=== PATIENT | male | born 1975 | race Caucasian/White ===

== ENCOUNTER 2017-05-31 17:56 | Emergency (ER) | payer MEDICAID ==
[~2017-05-31] VITALS: Ht 175.3 cm; Wt 88.9 kg
[~2017-05-31 17:56] MED LIST: FLEXERIL10 MG PO; MEDROL 4MG. DOSE4 MG PO; NAPROXEN SODIU500 MG PO; ZITHROMAX Z PA250 MG PO
[2017-05-31 20:00] VITALS: BP 134/73
--- NOTE | 2017-05-31 20:12 | Emergency Room Report ---
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 N Clinical Suspician of Infection? N Mental Status: 1 - Regular (Normal Baseline) Sepsis Risk:Low Sepsis Risk Have you (or family members/close friends) recently traveled outside the [place]? N If Yes, where/when: Have you had exposure to infectious disease within the past month? N TB? Other? 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 No Angina: No [place]: No Hypertension? No Hyperlipidemia? No CHF? No DVT? No PE? No COPD? No Asthma? No Anemia? No GERD? No Gastric ulcers? No GI Bleed? No Hernia? No Thyroid Problems? No Hypothyroidism? No CVA? No Seizures? No Diabetes? No Renal Insuffiency? No End Stage Renal Disease? No UTI? No Stones? No BPH? No GB Disease: No Nephritic Syndrome? No Asplenia? No Hepatitis? No Sickle Cell Disease? No Arthritis? No Migraines? No Cataracts? No Glaucoma? No MRSA? No HIV? No TB? No Anxiety? No Depression? No Cancer? No More? No Immunization Hx DT/Tetanus 1-4 Years Ago Surgical Hx Previous Surgery?N Social History Smoking Hx Smoker: Never Smoker Tobacco: No Alcohol Alcohol: No Drugs none Review of Systems All Other Systems Reviewed and Negative Constitutional denies fever Eyes denies drainage ENT throat pain. denies: epistaxis, throat swelling. Respiratory see HPI, cough Cardiovascular denies palpitations Gastrointestinal denies vomiting Skin denies rash Psychiatric/Neurological denies seizure Physical Exam Vital Signs Vital Signs Date Time Temp Pulse Resp B/P Pulse O2 O2 Flow FiO2 Ox Delivery Rate 05/31 1811 98.1 99 16 134/73 98 - WBC >12,000 or <4,000 or 10% bands? 2 or more SIRS Criteria Met? B/P:134/73 MAP:93 Creatinine >2.0? UA output<0.5ml/kg/hr for 2 hrs? Platelet count >100,000? Lactate >2.0mmol/1? INR >1.2 or PTT > than 60 sec? Evidence of Organ Dysfunction? Provider documented clinical suspician of infection? N Sepsis Criteria Count: 1 Sepsis Risk: Low Sepsis Risk General Appearance no apparent distress Eye Exam - bilateral eye PERRL, bilateral eye EOMI Ear, Nose, Throat refused exam Respiratory Status No: respiratory distress. 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 No Departure Departure Time of Disposition 2010 Disposition Against Medical Advice Clinical Impression Primary Impression: Acute bronchitis Qualifiers: Bronchitis organism: unspecified organism Qualified Code: J20.9 - Acute bronchitis, unspecified Condition STABLE Patient Instructions DI for Cough -- Adult Additional Instructions see pcp for follow up Discharge Counseling Counseled pt/family regarding diagnosis ED Critical Care Critical Care No at 2012
--- NOTE | 2017-05-31 20:12 | Emergency Room Report ---
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 N Clinical Suspician of Infection? N Mental Status: 1 - Regular (Normal Baseline) Sepsis Risk:Low Sepsis Risk Have you (or family members/close friends) recently traveled outside the [place]? N If Yes, where/when: Have you had exposure to infectious disease within the past month? N TB? Other? 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 No Angina: No [place]: No Hypertension? No Hyperlipidemia? No CHF? No DVT? No PE? No COPD? No Asthma? No Anemia? No GERD? No Gastric ulcers? No GI Bleed? No Hernia? No Thyroid Problems? No Hypothyroidism? No CVA? No Seizures? No Diabetes? No Renal Insuffiency? No End Stage Renal Disease? No UTI? No Stones? No BPH? No GB Disease: No Nephritic Syndrome? No Asplenia? No Hepatitis? No Sickle Cell Disease? No Arthritis? No Migraines? No Cataracts? No Glaucoma? No MRSA? No HIV? No TB? No Anxiety? No Depression? No Cancer? No More? No Immunization Hx DT/Tetanus 1-4 Years Ago Surgical Hx Previous Surgery?N Social History Smoking Hx Smoker: Never Smoker Tobacco: No Alcohol Alcohol: No Drugs none Review of Systems All Other Systems Reviewed and Negative Constitutional denies fever Eyes denies drainage ENT throat pain. denies: epistaxis, throat swelling. Respiratory see HPI, cough Cardiovascular denies palpitations Gastrointestinal denies vomiting Skin denies rash Psychiatric/Neurological denies seizure Physical Exam Vital Signs Vital Signs Date Time Temp Pulse Resp B/P Pulse O2 O2 Flow FiO2 Ox Delivery Rate 05/31 1811 98.1 99 16 134/73 98 - WBC >12,000 or <4,000 or 10% bands? 2 or more SIRS Criteria Met? B/P:134/73 MAP:93 Creatinine >2.0? UA output<0.5ml/kg/hr for 2 hrs? Platelet count >100,000? Lactate >2.0mmol/1? INR >1.2 or PTT > than 60 sec? Evidence of Organ Dysfunction? Provider documented clinical suspician of infection? N Sepsis Criteria Count: 1 Sepsis Risk: Low Sepsis Risk General Appearance no apparent distress Eye Exam - bilateral eye PERRL, bilateral eye EOMI Ear, Nose, Throat refused exam Respiratory Status No: respiratory distress. 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 No Departure Departure Time of Disposition 2010 Disposition Against Medical Advice Clinical Impression Primary Impression: Acute bronchitis Qualifiers: Bronchitis organism: unspecified organism Qualified Code: J20.9 - Acute bronchitis, unspecified Condition STABLE Patient Instructions DI for Cough -- Adult Additional Instructions see pcp for follow up Discharge Counseling Counseled pt/family regarding diagnosis ED Critical Care Critical Care No at 2012
--- OUTSIDE RECORDS SUMMARY | 2017-06-23 07:16 | External Medical Summary Rpt ---
Author Author , TRAVON COOL Address Unknown Phone [email or web address] Care Team Providers Care Golf Course Designer Name Role Phone DE LA CRUZ JERRY CARDENASNETT Unavailable Unavailable BRAIN BETTS Unavailable Unavailable [facility] Unavailable Unavailable [facility], [facility] GEORGE CAR, GEORGE Unavailable Unavailable CAR Natasha ZUÑIGA MD Unavailable Unavailable PSC, C ODALYS ZUÑIGA MD PSC ROLAND, CAROL S, Unavailable Unavailable ROLAND, CAROL S [facility], Unavailable Unavailable [facility] STANLEY SAMANTA, STANLEY SAMANTA Unavailable Unavailable STANLEY SAMANTA, STANLEY SAMANTA Unavailable Unavailable JOSEF SOPHY, Unavailable Unavailable JOSEF SOPHY EYAL II, EYAL II Unavailable Unavailable EYAL II THO, EYAL II Unavailable Unavailable [facility] Unavailable [facility]available [facility] RYAN JENNIFER, RYAN Unavailable Unavailable JENNIFER JONAS, JONAS Unavailable Unavailable AL NICOLE, AL Unavailable Unavailable NICOLE JOY NICOLE, JOY Unavailable Unavailable NICOLE BARRY RHO, BARRY Unavailable Unavailable RHO ECHAVARRIA, ECHAVARRIA Unavailable Unavailable [facility] Unavailable Unavailable INC, [facility] Unavailable Unavailable [facility]PITAL P, [facility], Unavailable Unavailable [facility], Unavailable Unavailable [facility] Unavailable Unavailable CENTER, [facility] RENO LESLIE, RENO LESLIE Unavailable Unavailable RENO LESLIE, RENO LESLIE Unavailable Unavailable IKRAMUDDIN, WILLIAM, Unavailable Unavailable IKRAMUDDIN, WILLIAM ROSSY WATTS ROSSY Unavailable Unavailable STEPHANIE LOPEZ S, Unavailable Unavailable LARIOSSTEPHANIE ORTIZ S JUSTICE TON, JUSTICE Unavailable Unavailable TON ABRAHAN III STEFANIE, Unavailable Unavailable ABRAHAN III STEFANIE [facility] Unavailable Unavailable [facility], [facility] KMS NURSE Unavailable Unavailable PRACTITIONER GR, KMSF NURSE PRACTITIONER GR TRACEY MAHAN, Unavailable Unavailable TRACEY MAHAN [facility] Un[facility] Unavailable [facility], [facility] KEYANNA LAURIE, KEYANNA LAURIE Unavailable Unavailable MIGUEL ANGEL, MIGUEL ANGEL Unavailable Unavailable MIGUEL ANGEL, MIGUEL ANGEL Unavailable Unavailable [facility] Unavailable [facility]available [facility] Un[facility], Unavailable Unavailable [facility] COATS ASHER, COATS ASHER Unavailable Unavailable COATS ASHER, COATS ASHER Unavailable Unavailable LILLIE BA, Unavailable Unavailable LILLIE BA [facility] Unavailable Unavailable [facility]ARM[facility]Y, [facility] SAMANTA STANLEY MD Unavailable Unavailable CON[facility]ING [facility], [facility] STANLEY MD [facility] Unavailable Unavailable EMS, [facility] Unavailable Unavailable EMS, [facility] CARMELLA JEA, CARMELLA Unavailable Unavailable JEA RICE YVO, RICE YVO Unavailable Unavailable SCALF MAU, SCALF MAU Unavailable Unavailable SCHULSTAD SALBADOR, Unavailable Unavailable [facility] SCIFRES ANG, SCIFRES Unavailable Unavailable ANG SCIFRES ANG, SCIFRES Unavailable Unavailable ANG SOKAN BAB, SOKAN BAB Unavailable Unavailable [facility]available Un[facility], [facility] KEANE, KEANE Unavailable Unavailable STEYN PIE, STEYN PIE Unavailable Unavailable STONE, STONE Unavailable Unavailable STONE YOUNG, STONE YOUNG Unavailable Unavailable SWINEY PAT, SWINEY Unavailable Unavailable PAT TAULBEE WILLIAM, TAULBEE Unavailable Unavailable WILLIAM MICHAEL III J, MICHAEL Unavailable Unavailable III J BLAKE JOHN, BLAKE Unavailable Unavailable JOHN BLAKE JOHN, BLAKE Unavailable Unavailable JOHN KELLIE TIA, KELLIE Unavailable Unavailable [facility] MEGHAN CAO, Unavailable Unavailable MEGHAN CAO Purpose Continuity of Care Document - 12-06-2007 through 2016 Problems Code Diagnosis DOS Provider Status Z0100 ENCOUNTER 04-10-2017 MIGUEL ANGEL EXAM EYES & VISION W/O ABNORMAL FIND R0789 OTHER CHEST 03-04-2017 [facility] P M54.5 Low back 02-03-2017 pain S33.5XXA Sprain of 02-03-2017 ligaments of lumbar spine, initial encounter W55.12XA Struck by 02-03-2017 horse, initial encounter Z72.0 Tobacco use 02-03-2017 E785 HYPERLIPIDE 02-02-2017 [facility] LAURA PHYSICIANS UNSPECIFIED GROUP 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-02-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 GROUP I10 ESSENTIAL 02-02-2017 [facility] PRIMARY PHYSICIANS HYPERTENSIO GROUP N J209 ACUTE 01-29-2017 [facility] UNSPECIFIED INC R21 RASH AND 01-29-2017 [facility] OTHER [facility] NONSPECIFIC INC SKIN ERUPTION Z720 TOBACCO USE 01-29-2017 [facility] F17.210 NICOTINE 01-28-2017 DEP[facility], CIGARETTES, UNCOMPLICAT ED I10 ESSENTIAL 01-28-2017 (PRIMARY) HYPERTENSIO N R07.9 CHEST PAIN, 01-28-2017 UNSPECIFIED Z79.899 OTHER LONG 01-28-2017 TER[facility] (CURRENT) DRUG THERAPY [id number] PAIN IN 01-28-2017 [place] LEFT LEG [facility] EMS R0602 SHORTNESS 01-25-2017 [facility] [place] [facility] BREATH [facility] R079 CHEST PAIN 01-25-2017 [facility] UNSPECIFIED N EMERGENCY PHYS J0140 ACUTE 09-27-2016 [facility] PANSINUSITI N EMERGENCY S PHYS UNSPECIFIED J324 CHRONIC 09-27-2016 [facility] PANSINUSITI N EMERGENCY S PHYS R51 HEADACHE 09-27-2016 [facility] L237 ALLERGIC 08-04-2016 [facility] CONTACT N EMERGENCY DERMATITIS PHYS D/T PLANTS EXCP FOOD M5440 LUMBAGO 08-03-2016 [facility] UNSPECIFIED SIDE M545 LOW BACK 08-03-2016 [facility] PAIN PHYSICIANS GROUP B0089 OTHER 05-13-2016 [facility] HERPESVIRAL N EMERGENCY INFECTION PHYS R0781 PLEURODYNIA 01-10-2016 [facility] N EMERGENCY PHYSI M542 CERVICALGIA 12-24-2015 [facility] C70843 MUSCLE 12-24-2015 [facility] BACK INC G10054 OTHER 12-24-2015 [facility] MUSCLE [facility] SPASM INC E38243Z UNSPECIFIED 09-23-2015 [facility] SPRAIN N EMERGENCY LEFT FOOT PHYS INITIAL ENCOUNTER L59898C UNSPECIFIED 09-23-2015 [facility] [place] [facility] LEFT FOOT INITIAL ENCOUNTER J0234BV OTHER 09-23-2015 [facility] CONTACT N EMERGENCY WITH OTHER PHYS MAMMALS INITIAL ENCNTR T97008 PREGLAUCOMA 08-05-2015 SCIFRES ANG , UNSPECIFIED , BILATERAL 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 H524 PRESBYOPIA 08-05-2015 [facility] [id number] PUNCT WND 07-16-2015 [facility] NO FB RT N EMERGENCY INDX FINGER PHYS NO DAMGE NAIL INT [id number] EXPOSURE TO 07-16-2015 [facility] OTHER N EMERGENCY SPECIFIED PHYS FACTORS INITIAL ENC 65975 DEHYDRATION 03-01-2015 [facility] N EMERGENCY PHYS 4779 ALLERGIC 03-01-2015 [facility] RHINITIS N EMERGENCY CAUSE PHYS UNSPECIFIED 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 V016 CONTACT 01-03-2015 [facility] WITH OR PHYSICIANS EXPOSURE TO GROUP VENEREAL DISEASES 2724 OTHER AND 11-28-2014 [facility] UNSPECIFIED PHYSICIANS GROUP HYPERLIPIDE LAURA 4019 UNSPECIFIED 11-28-2014 [facility] ESSENTIAL PHYSICIANS HYPERTENSIO GROUP N 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-28-2014 [facility] 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 4011 ESSENTIAL 01-12-2014 [facility] HYPERTENSIO N, BENIGN 97491 CHEST PAIN 08-04-2013 R[place] LESLIE UNSPECIFIED 33240 OTHER CHEST 08-04-2013 [facility] V1582 PERS HX 08-04-2013 [facility] USE [facility] V1749 FAMILY 08-04-2013 [facility] HISTORY OF [facility] OTHER HOSPITAL CARDIOVASCU LAR DISEASES V5869 LONG-TERM 08-04-2013 [facility] (CURRENT) COMMUNITY USE OF HOSPITAL OTHER MEDICATIONS 30660 CALCU 12-09-2012 [facility] NURSE XANDER PRACTITIONE W/O MENTION R GR CHOLECYST/O BST 73749 CALCU 12-08-2012 [facility] W/OTH HOSPI CHOLECYST W/O MENTION OBST 07792 CHRONIC 12-08-2012 [place] [facility] CHOLE[facility] IS [facility] V6441 LAPAROSCOPI 12-08-2012 [facility]ICAL SERV PROC [facility] COVERTED OPEN PROC 5758 OTHER 10-28-2012 [facility] [place] SPECIFIED RADIOLOGY DISORDER OF GALLBLADDER 5680 PERITONEAL 10-10-2012 C ODALYS ZUÑIGA MD PSC 76576 CALCU 10-10-2012 Natasha ZUÑIGA W/TEMO COHN PSC CHOLCYST W/O MENTION OBST V641 SURG/OTH 10-10-2012 C [facility] PROC NOT ZARA HERNANDEZ MD [facility] BECAUSE CONTRAINDIC ATION 2720 PURE 09-28-2012 [facility] HYPERCHOLES ZARA SANTA MD PSC 30526 ABDOMINAL 09-28-2012 [facility] PAIN RIGHT ZARA EWING MD [facility] QUADRANT 7873 FLATULENCE 09-21-2012 C [facility] ERUCTATION DOUG COHN [facility] PAIN 89562 ABDOMINAL 09-06-2012 JACKELINE PAIN, 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 RUST CONSULTING SERV 96980 HYPERSOMNIA 08-10-2011 [facility] UNSPECIFIED CONSULTING SERV 27456 SHORTNESS 08-10-2011 [facility] OF BREATH CONSULTING SERV 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 03152 OTHER 08-02-2011 [facility] RESPIRATORY ABNORMALITI ES V8532 BODY MASS 08-02-2011 [facility] INDEX COMMUNITY 32.0-32.9 HOSPITAL ADULT 10805 RECURRENT 07-28-2011 ST[facility] SAMANTA HYPERSOMNIA 04851 PRECORDIAL 07-28-2011 [facility] SAMANTA PAIN 7804 DIZZINESS 07-24-2011 BLA[facility] JOHN AND GIDDINESS 7840 HEADACHE 07-24-2011 [facility] V0481 NEED 06-24-2011 [facility] PROPHYLACTI HEALTHCARE C CENTER VACCINATION &INOCULATIO N FLU 31297 OTHER 06-05-2011 [facility] DISEASES OF HEALTHCARE NASAL CENTER CAVITY AND SINUSES 490 BRONCHITIS 06-05-2011 [facility] NOT HEALTHCARE SPECIFIED CENTER ACUTE OR CHRONIC 7862 COUGH 06-05-2011 [facility] 6929 CONTACT 01-15-2010 MIGUEL ANGEL DERMATITIS& EMERGENCY OTHER SERVICES [employer] UNSPEC CAUSE V154 PERS HX 12-12-2009 [facility] FOR PSYCHOLOGIC PUBLIC HLTH AL TRAUMA PRS [facility] 7241 PAIN IN 08-13-2009 IKRAMUDDIN, THORACIC WILLIAM SPINE 2469 UNSPECIFIED 06-05-2009 [facility] OF THYROID HOLDING 2729 UNSPECIFIED 06-05-2009 [facility] OF LIPOID HOLDING METABOLISM 2899 UNSPECIFIED 06-05-2009 [facility] DISEASES AMERIC BLOOD&BLOOD HOLDING -FORMING ORGANS 23531 ATHEROSLERO 06-05-2009 ALL FAMILY [facility] CARE EXTREM W/INTERMIT CLAUDICAT 06659 ATHEROSLERO 06-05-2009 ALL FAMILY [place] ART HEALTH CARE EXTREMITIES W/REST PAIN 7245 UNSPECIFIED 06-05-2009 ALL FAMILY BACKACHE HEALTH CARE 74106 ELEVATED 06-05-2009 [facility] PROSTATE [facility] SPECIFIC HOLDING ANTIGEN 32341 OPEN WOUND 09-21-2008 [facility] WITHOUT CLINIC MENTION COMPLICATIO N 8820 OPEN WOUND 09-19-2008 [facility] A HAND NO R H FINGER ALONE W/O MENTION COMP 9140 HAND NO 09-19-2008 [facility] [employer] [employer] BURN W/O INF E9060 DOG BITE 09-19-2008 [facility] 4659 ACUTE URIS 05-16-2008 IKRAMUDDIN, OF WILLIAM UNSPECIFIED SITE J20.9 ACUTE BRONCHITIS, UNSPECIFIED M54.2 CERVICALGIA M54.9 DORSALGIA, UNSPECIFIED Medications Na ND Rx Da Fi Fi Am Da Di Ph RX Ph St me C No te ll ll ou ys ag ar # ys at rm s nt no ma ic us Or Da si cy ia de te s n re d CY 69 08 09 90 30 00 HO Ac CL 09 -1 -1 .0 00 ME ti OB 70 5- 5- 00 06 TO ve EN 84 20 20 08 WN ZA 61 17 17 93 RI 5 45 PH IN AR E MA 10 CY MG OF TA CY BL NT ET HI AN A NA 65 08 09 60 30 00 HO Ac RI 16 -1 -1 .0 00 ME ti OX 20 5- 5- 00 06 TO ve EN 19 20 20 08 WN 05 17 17 93 50 0 44 PH 0 AR MG MA CY TA BL OF ET CY NT HI AN A LI 68 08 09 30 30 00 HO Ac SI 00 -1 -1 .0 00 ME ti NO 10 5- 5- 00 06 TO ve RI 27 20 20 08 WN IL 10 17 17 75 8 30 PH 40 AR MA MG CY TA OF BL ET CY NT HI AN A GE 42 08 09 60 30 00 HO Ac MF 80 -1 -1 .0 00 ME ti IB 60 5- 5- 00 06 TO ve RO 26 20 20 08 WN ZI 00 17 17 75 L 5 29 PH 60 AR 0 MA MG CY TA OF BL ET CY NT HI AN A GA 68 08 09 60 30 00 HO Ac BA 00 -1 -1 .0 00 ME ti PE 10 5- 5- 00 06 TO ve NT 00 20 20 08 WN IN 70 17 17 75 3 26 PH 80 AR 0 MA MG CY TA OF BL ET CY NT HI AN A CY 69 07 08 90 30 00 HO Ac CL 09 -1 -1 .0 00 ME ti OB 70 8- 8- 00 06 TO ve EN 84 20 20 08 WN ZA 61 17 17 93 RI 5 45 PH IN AR E MA 10 CY MG OF TA CY BL NT ET HI AN A NA 68 07 08 60 30 00 HO Ac RI 46 -1 -1 .0 00 ME ti OX 20 8- 8- 00 06 TO ve EN 19 20 20 08 WN 00 17 17 93 50 5 44 PH 0 AR MG MA CY TA BL OF ET CY NT HI AN A LI 68 07 08 30 30 00 HO Ac SI 00 -1 -1 .0 00 ME ti NO 10 8- 8- 00 06 TO ve RI 27 20 20 08 WN IL 10 17 17 75 8 30 PH 40 AR MA MG CY TA OF BL ET CY NT HI AN A GE 69 07 08 60 30 00 HO Ac MF 09 -1 -1 .0 00 ME ti IB 70 8- 8- 00 06 TO ve RO 82 20 20 08 WN ZI 11 17 17 75 L 2 29 PH 60 AR 0 MA MG CY TA OF BL ET CY NT HI AN A GA 68 07 08 60 30 00 HO Ac BA 00 -1 -1 .0 00 ME ti PE 10 8- 8- 00 06 TO ve NT 00 20 20 08 WN IN 70 17 17 75 3 26 PH 80 AR 0 MA MG CY TA OF BL ET CY NT HI AN A LI 68 06 07 30 30 00 HO Ac SI 00 -2 -2 .0 00 ME ti NO 10 0- 1- 00 06 TO ve RI 27 20 20 08 WN IL 10 17 17 75 8 30 PH 40 AR MA MG CY TA OF BL ET CY NT HI AN A CY 69 06 07 90 30 00 HO Ac CL 09 -2 -2 .0 00 ME ti OB 70 0- 1- 00 06 TO ve EN 84 20 20 08 WN ZA 61 17 17 93 RI 5 45 PH IN AR E MA 10 CY MG OF TA CY BL NT ET HI AN A NA 68 06 07 60 30 00 HO Ac RI 46 -2 -2 .0 00 ME ti OX 20 0- 1- 00 06 TO ve EN 19 20 20 08 WN 00 17 17 93 50 5 44 PH 0 AR MG MA CY TA BL OF ET CY NT HI AN A GA 68 06 07 60 30 00 HO Ac BA 00 -2 -2 .0 00 ME ti PE 10 0- 1- 00 06 TO ve NT 00 20 20 08 WN IN 70 17 17 75 3 26 PH 80 AR 0 MA MG CY TA OF BL ET CY NT HI AN A GE 69 06 07 60 30 00 HO Ac MF 09 -2 -2 .0 00 ME ti IB 70 0- 1- 00 06 TO ve RO 82 20 20 08 WN ZI 11 17 17 75 L 2 29 PH 60 AR 0 MA MG CY TA OF BL ET CY NT HI AN A GA 68 05 06 60 30 00 HO Ac BA 00 -2 -2 .0 00 ME ti PE 10 3- 3- 00 06 TO ve NT 00 20 20 08 WN IN 70 17 17 75 3 26 PH 80 AR 0 MA MG CY TA OF BL ET CY NT HI AN A NA 68 05 06 60 30 00 HO Ac RI 46 -2 -2 .0 00 ME ti OX 20 3- 3- 00 06 TO ve EN 19 20 20 08 WN 00 17 17 75 50 5 27 PH 0 AR MG MA CY TA BL OF ET CY NT HI AN A CY 69 05 06 90 30 00 HO Ac CL 09 -2 -2 .0 00 ME ti OB 70 3- 3- 00 06 TO ve EN 84 20 20 08 WN ZA 61 17 17 75 RI 5 28 PH IN AR E MA 10 CY MG OF TA CY BL NT ET HI AN A GE 69 05 06 60 30 00 HO Ac MF 09 -2 -2 .0 00 ME ti IB 70 3- 3- 00 06 TO ve RO 82 20 20 08 WN ZI 11 17 17 75 L 2 29 PH 60 AR 0 MA MG CY TA OF BL ET CY NT HI AN A LI 68 05 06 30 30 00 HO Ac SI 00 -2 -2 .0 00 ME ti NO 10 3- 3- 00 06 TO ve RI 27 20 20 08 WN IL 10 17 17 75 8 30 PH 40 AR MA MG CY TA OF BL ET CY NT HI AN A ME 59 05 06 21 5 00 WA Ac TH 74 -1 -2 .0 00 L- ti YL 60 9- 3- 00 07 MA ve RI 00 20 20 41 RT ED 10 17 17 00 NI 3 36 PH SO AR LO MA NE CY 4 #4 MG 93 DO SE PK AZ 59 05 06 6. 5 00 WA Ac IT 76 -1 -2 00 00 L- ti HR 23 9- 3- 0 07 MA ve OM 06 20 20 41 RT YC 00 17 17 00 IN 1 37 PH AR 25 MA 0 CY MG #4 TA 93 BL ET GA 45 04 05 60 30 00 HO Ac BA 96 -1 -1 .0 00 ME ti PE 30 8- 9- 00 06 TO ve NT 55 20 20 07 WN IN 65 17 17 59 0 13 PH 30 AR 0 MA MG CY CA OF PS UL CY E NT HI AN A LI 68 04 05 30 30 00 HO Ac SI 00 -1 -1 .0 00 ME ti NO 10 8- 9- 00 06 TO ve RI 27 20 20 07 WN IL 10 17 17 59 8 12 PH 40 AR MA MG CY TA OF BL ET CY NT HI AN A LI 68 03 04 30 30 00 HO Ac SI 00 -2 -2 .0 00 ME ti NO 10 1- - 06 TO ve RI 27 20 20 07 WN IL 10 17 17 59 8 12 PH 40 AR MA MG CY TA OF BL ET CY NT HI AN A GA 45 03 04 60 30 00 HO Ac BA 96 -2 -2 .0 00 ME ti PE 30 1- 1- 00 06 TO ve NT 55 20 20 07 WN IN 65 17 17 59 0 13 PH 30 AR 0 MA MG CY CA OF PS UL CY E NT HI AN A LI 00 02 03 30 30 00 HO Ac SI 18 -2 -2 .0 00 ME ti NO 50 1- 4- 00 06 TO ve RI 64 20 20 07 WN IL 01 17 17 59 0 12 PH 40 AR MA MG CY TA OF BL ET CY NT HI AN A GA 45 02 03 60 30 00 HO Ac BA 96 -2 -2 .0 00 ME ti PE 30 1- 4- 00 06 TO ve NT 55 20 20 07 WN IN 65 17 17 59 0 13 PH 30 AR 0 MA MG CY CA OF PS UL CY E NT HI AN A GA 45 01 02 60 30 00 HO Ac BA 96 -2 -2 .0 00 ME ti PE 30 3- 4- 00 06 TO ve NT 55 20 20 07 WN IN 65 17 17 59 0 13 PH 30 AR 0 MA MG CY CA OF PS UL CY E NT HI AN A LI 00 01 02 30 30 00 HO Ac SI 18 -2 -2 .0 00 ME ti NO 50 3- 4- 00 06 TO ve RI 64 20 20 07 WN IL 01 17 17 59 0 12 PH 40 AR MA MG CY TA OF BL ET CY NT HI AN A ME 00 01 02 20 5 00 HO Ac TO 09 -1 -1 .0 00 ME ti CL 32 6- 7- 00 06 TO ve OP 20 20 20 07 WN RA 30 17 17 95 RI 5 76 PH DE AR MA 10 CY MG OF TA CY BL NT ET HI AN A CE 68 01 02 40 10 00 HO Ac PH 18 -1 -1 .0 00 ME ti AL 00 6- 7- 00 06 TO ve EX 12 20 20 07 WN IN 20 17 17 95 2 77 PH 50 AR 0 MA MG CY CA OF PS UL CY E NT HI AN A WHITE 53 01 02 20 10 00 HO Ac LF 74 -1 -1 .0 00 ME ti AM 60 6- 7- 00 06 TO ve ET 27 20 20 07 WN HO 20 17 17 95 XA 5 75 PH ZO AR LE MA -T CY MP OF DS CY TA NT BL HI ET AN A LI 00 12 01 30 30 00 HO Ac SI 18 -2 -2 .0 00 ME ti NO 50 6- 7- 00 06 TO ve RI 64 20 20 07 WN IL 01 16 17 27 0 51 PH 40 AR MA MG CY TA OF BL ET CY NT HI AN A GA 45 12 01 60 30 00 HO Ac BA 96 -2 -2 .0 00 ME ti PE 30 7- 7- 00 06 TO ve NT 55 20 20 07 WN IN 65 16 17 82 0 83 PH 30 AR 0 MA MG CY CA OF PS UL CY E NT HI AN A RI 37 09 10 3 30 30 HO 60 TR Ac IL 00 -2 -2 .0 ME 23 IM ti OS 00 8- 6- 00 TO 95 BL ve EC 45 20 20 WN 2 E 50 11 11 ER OT 4 PH IC C AR A 20 MA B .6 CY MG TA BL ET TI 00 09 10 1 90 22 HO 60 TR Ac ZA 18 -2 -1 .0 ME 23 IM ti NI 54 3- 3- 00 TO 71 BL ve DI 40 20 20 WN 2 E NE 01 11 11 ER 0 PH IC HC AR A L MA B 4 CY MG TA BL ET GE 31 10 10 3 60 30 HO 60 TR Ac MF 72 -1 -1 .0 ME 24 IM ti IB 20 2- 2- 00 TO 71 BL ve RO 22 20 20 WN 8 E ZI 50 11 11 ER L 5 PH IC 60 AR A 0 MA B MG CY TA BL ET LI 00 10 10 1 30 30 HO 60 TR Ac SI 18 -1 -1 .0 ME 24 IM ti NO 50 2- 2- 00 TO 71 BL ve RI 10 20 20 WN 9 E IL 21 11 11 ER 0 PH IC 20 AR A MA B MG CY TA BL ET RI 37 09 09 3 30 30 HO 60 TR Ac IL 00 -2 -2 .0 ME 23 IM ti OS 00 8- 8- 00 TO 95 BL ve EC 45 20 20 WN 2 E 50 11 11 ER OT 4 PH IC C AR A 20 MA B .6 CY MG TA BL ET TI 00 09 09 1 90 22 HO 60 TR Ac ZA 18 -2 -2 .0 ME 23 IM ti NI 54 3- 3- 00 TO 71 BL ve DI 40 20 20 WN 2 E NE 01 11 11 ER 0 PH IC HC AR A L MA B 4 CY MG TA BL ET LI 00 09 09 1 30 30 HO 60 TR Ac SI 18 -2 -2 .0 ME 23 IM ti NO 50 3- 3- 00 TO 71 BL ve RI 10 20 20 WN 3 E IL 11 11 11 ER 0 PH IC 10 AR A MA B MG CY TA BL ET AM 66 09 09 0 20 10 HO 60 TR Ac OX 68 -2 -2 .0 ME 23 IM ti -C 51 3- 3- 00 TO 71 BL ve LA 00 20 20 WN 4 E V 10 11 11 ER 87 0 PH IC 5- AR A 12 MA B 5 CY MG TA BL ET BR 60 09 09 0 12 3 HO 60 TR Ac OM 43 -2 -2 0. ME 23 IM ti FE 20 3- 3- 00 TO 71 BL ve D 83 20 20 0 WN 5 E DM 71 11 11 ER 6 PH IC CO AR A UG MA B H CY SY RU P 50 11 01 00 30 30 NE 16 IK Ac 11 -0 -1 .0 IG 53 RA ti 10 2- 4- 00 HB 48 MU ve 30 20 20 OR DD 90 09 10 HO IN 1 OD SY PH ED AR MA CY KE 00 11 01 00 60 30 NE 16 IK Ac TO 37 -0 -1 .0 IG 53 RA ti RI 85 2- 4- 00 HB 45 MU ve OF 75 20 20 OR DD EN 00 09 10 HO IN 1 OD 75 SY PH ED MG AR MA CA CY PS UL E TI 57 11 01 00 60 20 NE 16 IK Ac ZA 66 -0 -1 .0 IG 53 RA ti NI 40 2- 4- 00 HB 46 MU ve DI 50 20 20 OR DD NE 31 09 10 HO IN 3 OD HC SY L PH ED 4 AR MG MA CY TA BL ET 64 12 12 00 14 7 ME 75 IK Ac 37 -0 -1 .0 DZ 18 RA ti 60 1 7- 00 ON 38 MU ve 54 20 20 E DD 40 09 09 PH IN 1 AR MA SY CY ED 00 06 11 00 15 3 ME 68 LE Ac 59 -0 -0 .0 DZ 93 SL ti 10 5 ON 84 IE ve 38 20 20 E 50 09 09 PH RO 5 AR BE MA RT CY K ME 68 09 10 00 30 15 ME 72 No Ac LO 38 -2 -0 .0 DZ 65 t ti XI 20 ON 31 Av ve CA 05 20 20 E ai M 10 09 09 PH la 15 5 AR bl MA e MG CY TA BL ET 00 06 06 00 15 3 ME 58 LE Ac 59 -0 -1 .0 DZ 14 SL ti 10 ON 25 IE ve 38 20 20 E 50 08 09 PH RO 5 AR BE MA RT CY K PE 00 06 06 00 28 7 ME 68 LE Ac NI 78 -0 -1 .0 DZ 93 SL ti CI 11 ON 85 IE ve LL 65 20 20 E IN 51 09 09 PH RO 0 AR BE VK MA RT CY K 50 0 MG TA BL ET 00 05 05 00 15 3 ME 68 LE Ac 59 -1 -2 .0 DZ 07 SL ti 10 ON 23 IE ve 38 20 20 E 50 09 09 PH RO 5 AR BE MA RT CY K 00 05 05 00 15 3 ME 57 LE Ac 59 -0 -2 .0 DZ 46 SL ti 10 ON 13 IE ve 38 20 20 E 50 08 09 PH RO 5 AR BE MA RT CY K PE 00 05 05 00 28 7 ME 68 LE Ac NI 78 -0 -2 .0 DZ 00 SL ti CI 11 ON 70 IE ve LL 65 20 20 E IN 51 09 09 PH RO 0 AR BE VK MA RT CY K 50 0 MG TA BL ET 00 05 05 00 15 3 ME 68 LE Ac 59 -0 -2 .0 DZ 00 SL ti 10 8- 00 ON 69 IE ve 38 20 20 E 50 09 09 PH RO 5 AR BE MA RT CY K 00 03 04 00 15 3 ME 66 LE Ac 59 -2 -0 .0 DZ 50 SL ti 10 3- 9 00 ON 97 IE ve 38 20 20 E 50 09 09 PH RO 5 AR BE MA RT CY K 00 03 04 00 15 3 ME 66 LE Ac 59 -3 -0 .0 DZ 72 SL ti 10 0- 9 ON 29 IE ve 38 20 20 E 50 09 09 PH RO 5 AR BE MA RT CY K 00 01 02 00 15 3 ME 64 LE Ac 59 -2 -1 .0 DZ 83 SL ti 10 9 2 ON 77 IE ve 38 20 20 E 50 09 09 PH RO 5 AR BE MA RT CY K 00 01 02 00 15 3 ME 64 LE Ac 59 -2 -1 .0 DZ 77 SL ti 10 6- 2 ON 46 IE ve 38 20 20 E 50 09 09 PH RO 5 AR BE MA RT CY K LO 00 01 01 00 30 30 MC 10 CA Ac RA 59 -0 -1 .0 DO 79 LD ti ZE 10 9 5 WE 84 WE ve PA 24 20 20 LL 6 LL M 11 09 09 1 0 RI ES MG OF LY S TA PH BL AR ET M CE 68 01 01 00 15 5 MC 10 WA Ac PH 18 -0 -1 .0 DO 78 DN ti AL 00 7- 5 WE 50 ER ve EX 12 20 20 LL 1 KA IN 20 09 09 R 2 RI RA 50 OF HU 0 L MG PH AR CA M PS UL E 00 12 01 00 15 3 ME 63 LE Ac 59 -3 -1 .0 DZ 94 SL ti 10 0- 5- 00 ON 08 IE ve 38 20 20 E 50 08 09 PH RO 5 AR BE MA RT CY K 00 11 12 00 12 2 MC 10 TA Ac 59 -1 -0 .0 DO 63 CK ti 10 7 4- 00 WE 06 ET ve 50 20 20 LL 5 T 20 08 08 DE 5 RI NV OF ER D PH AR M 00 09 10 00 15 3 ME 60 No Ac 59 -1 -0 .0 DZ 85 t ti 10 5- 9- 00 ON 96 Av ve 38 20 20 E ai 50 08 08 PH la 5 AR bl MA e CY 00 09 09 00 15 3 ME 60 No Ac 59 -1 -2 .0 DZ 76 t ti 10 1- 6- 00 ON 55 Av ve 38 20 20 E ai 50 08 08 PH la 5 AR bl MA e CY PE 00 08 09 00 59 7 ME 60 No Ac RM 47 -3 -1 .0 DZ 44 t ti ET 25 0- 1- 00 ON 41 Av ve HR 24 20 20 E ai IN 26 08 08 PH la 7 AR bl 1% MA e CY LO TI ON 49 09 09 00 60 20 ME 60 No Ac 88 -0 -1 .0 DZ 51 t ti 40 3- 1- 00 ON 08 Av ve 77 20 20 E ai 90 08 08 PH la 5 AR bl MA e CY LO 51 09 09 00 10 10 ME 60 No Ac RA 66 -0 -1 .0 DZ 51 t ti TA 00 3- 1- 00 ON 07 Av ve DI 52 20 20 E ai NE 60 08 08 PH la 1 AR bl 10 MA e CY MG TA BL ET AZ 59 09 09 00 6. 5 ME 60 No Ac IT 76 -0 -1 00 DZ 51 t ti HR 23 3- 1- 0 ON 06 Av ve OM 06 20 20 E ai YC 00 08 08 PH la IN 1 AR bl MA e 25 CY 0 MG TA BL ET 00 08 08 00 12 2 MC 10 No Ac 59 -0 -1 .0 DO 29 t ti 10 5- 4- 00 WE 94 Av ve 50 20 20 LL 4 ai 20 08 08 la 5 RI bl OF e PH AR M PE 00 06 06 00 28 7 ME 58 No Ac NI 78 -0 -1 .0 DZ 14 t ti CI 11 5- 2- 00 ON 26 Av ve LL 65 20 20 E ai IN 51 08 08 PH la 0 AR bl VK MA e CY 50 0 MG TA BL ET PE 00 03 04 00 28 7 ME 56 No Ac NI 78 -1 -1 .0 DZ 07 t ti CI 11 4- 7- 00 ON 69 Av ve LL 65 20 20 E ai IN 51 08 08 PH la 0 AR bl VK MA e CY 50 0 MG TA BL ET 00 03 04 00 15 3 ME 56 No Ac 59 -1 -1 .0 DZ 07 t ti 10 4- 0- 00 ON 71 Av ve 38 20 20 E ai 50 08 08 PH la 5 AR bl MA e CY 00 03 04 00 15 3 ME 56 No Ac 59 -2 -1 .0 DZ 42 t ti 10 8- 0- 00 ON 34 Av ve 38 20 20 E ai 50 08 08 PH la 5 AR bl MA e CY 00 01 03 00 15 3 ME 54 No Ac 59 -1 -2 .0 DZ 53 t ti 10 5- 5- 00 ON 12 Av ve 38 20 20 E ai 50 08 08 PH la 5 AR bl MA e CY PE 00 01 03 00 28 7 ME 54 No Ac NI 78 -1 -2 .0 DZ 54 t ti CI 11 5- 5- 00 ON 86 Av ve LL 65 20 20 E ai IN 51 08 08 PH la 0 AR bl VK MA e CY 50 0 MG TA BL ET 00 01 03 00 15 3 ME 54 No Ac 59 -1 -2 .0 DZ 63 t ti 10 8- 5- 00 ON 36 Av ve 38 20 20 E ai 50 08 08 PH la 5 AR bl MA e CY Immunization Name Date Rout CVX Reac Dose Comm Prov Is Faci e tion ent ider Refu lity Give sed n IIV3 10- 141 TRIM No HORI 2-20 BLE ZON VACC 11 [facility] INE THCA SPLI RE T CENT VIRU ER S 0.5 ML DOSA GE IM USE Results Labs Lab Lab Date Result Refere Interp Status Commen Order Detail nces retati t Range on Drugs identified in Urine by Screen method (06-09-2017 15:20) Ampheta NEGATIV <1000 complet mine 017 E ed [Presen 15:20 ce] in Urine by Screen method 11-Hydr NEGATIV <50 complet oxy 017 E ed delta-9 15:20 tetrahy drocann abinol [Presen ce] in Unspeci fied specime n Procedures Procedure DOS Code Location Performer Comment DETERMINA 22203 [facility] TION 7 [facility]26 [facility] 7 XM&EVAL COMPRE NEW PT 1/> VST CV STRS 72521 SORAIDA DE LA PAZ TST 7 [facility] RX CONT P ECG I&R ONLY CV STRS 83319 SORAIDA DE LA PAZ TST 7 [facility] RX CONT P ECG W/O I&R CV STRS 25062 SORAIDA QUIGLEY TST 7 [facility] XERS&/OR INC INC RX CONT ECG TRCG ONLY ECHO 10173 SORAIDA QUIGLEY TTHRC R-T 7 [facility] HOSP 2D INC INC W/WOM-MOD E COMPL SPEC&COLR D THERAPEUT 03264 SORAIDA QUIGLEY IC 7 [facility] HOSP PROPHYLAC INC INC TIC/DX INJECTION SUBQ/IM AMB A0427 [facility] SERVICE 7 [facility] EMERGENCY EMS EMS TRANSPORT LEVEL 1 GROUND A0425 [facility] MILEAGE 7 [facility] STATUTE EMS EMS MILE RADIOLOGI 10421 [facility] [place] ECHAVARRIA C 7 RADIOLOGY EXAMINATI [place] [address] [facility] [place] KEANE HEAD/BRAI 7 RADIOLOGY N W/[place] [address] [facility] [place] KEANE MAXILLOFA 7 RADIOLOGY CIAL W/O CONTRAST MATERIAL RADEX 59575 [place] [facility] SPINE 6 MEDICAL SOPHY LUMBOSACR IMAGING AL ASS MINIMUM 4 VIEWS RADEX 29161 [facility] [place] GEORGE RIBS UNI 6 RADIOLOGY CAR W/POSTERO ANT CH MINIMUM 3 VIEWS RADEX 23167 SORAIDA QUIGLEY SPINE 6 [facility] LUMBOSACR INC INC AL MINIMUM 4 VIEWS RADEX 39860 SORAIDA QUIGLEY SPINE 6 [facility] CERVICAL INC INC 4 OR 5 VIEWS UNCLASSIF J3490 SORAIDA QUIGLEY IED DRUGS 6 [facility] INC INC RADEX 54247 [facility] [place] BARRY FOOT 6 RADIOLOGY RHO COMPLETE MINIMUM 3 VIEWS OPHTH 89872 SCIFRES SCIFRES MEDICAL 5 ANG ANG XM&EVAL COMPRE NEW PT 1/> VST ECG 33893 [facility] ROUTINE 3 [facility] W/LEAST 12 LDS TRCG ONLY W/O I&R BASIC 38603 [facility] METABOLIC 3 [facility] [place] [address] [facility] TROPONIN 3 [facility] KEITH BLOOD 82517 [facility] COUNT 3 [facility] AUTO&[place] [address] KENDRA GARDNER LIPASE 3 [facility] ECG 78862 SHADIA NELSON ROUTINE 3 ECG W/LEAST 12 LDS I&R ONLY RADIOLOGI 26959 KENDRA GARDNER C 3 [facility] ON CHEST SINGLE VIEW FRONTAL COLLECTIO 84345 KENDRA GARDNER N VENOUS 3 [facility] 36520 KMSF RICE YVO DISCHARGE 3 NURSE DAY PRACTITIO MANAGEMEN NER GR T 30 MIN/< LEVEL III 82693 [facility] LAURIE SURG 3 Y OF PATHOLOGY [facility] GROSS&NICOLE ROSCOPIC EXAM CHOLECYST 27480 [place] KELLIE ECTOMY 3 MEDICAL TIA SERV FOUNDATIO ANES 91822 [place] STEYN PIE INTRAPERI 3 MEDICAL TONEAL SERV UPPER FOUNDATIO ABDOMEN W/LAPS NOS MRI 72537 [facility] [place] ABRAHAN ABDOMEN 3 RADIOLOGY III STEFANIE W/O CONTRAST MATERIAL ANES 14093 [place] JOY INTRAPERI 3 ANESTHESI NICOLE TONEAL A GROUP UPPER PS ABDOMEN W/LAPS NOS LAPAROSCO 97434 C ODALYS C ODALYS PY SURG 3 BUBBAAD ZARA CHOLECYST PSC MD PSC ECTOMY ECG [address] [facility] ROUTINE 3 CHARLIE III J ECG CARDIOLOG W/LEAST Y CLINIC 12 LDS I&[place] [address] KENDRA GARDNER ABDOMINAL 3 [facility] TIME W/IMAGE LIMITED AMB A0427 [facility] SERVICE 2 KENDRA GARDNER [facility] EMERGENCY EMS [place] [address] [facility] [place] KOSTELIC ABDOMEN & 2 RADIOLOGY NEGRITO PELVIS W/O CONTRAST MATERIAL RADIOLOGI 34059 [facility] [place] SCALF MAU C EXAM 2 RADIOLOGY CHEST 2 VIEWS FRONTAL&L ATERAL GROUND A0425 [facility] MILEAGE 2 KENDRA GARDNER [facility] STATUTE EMS EMS MILE [facility] [address] LAB DORIAN LAB DORIAN SIVE 2 [facility] [employer] [place] [address] LAB D[facility]IAN LAB DORIAN FREE 2 [employer] [place] [address] LAB D[facility]IAN LAB DOR[facility] THYROID 2 [facility] STIMULATI HOLDING HOLDING NG HORMONE TSH HEMOGLOBI 51300 [facility] LAB DORIAN N 2 AMERIC AMERIC GLYCOSYLA HOLDING [place] [address] LAB D[facility]IAN LAB DORIAN TRIIODOTH 2 AMERIC AMERIC YRONINE HOLDING [place]ING T3 [place] [place] [address] LAB D[facility]IAN LAB DORIAN THYROID 2 [facility] STIMULATI HOLDING HOLDING NG HORMONE TSH LIPID 16628 [facility] LAB DORIAN PANEL 2 [employer] [facility] COMPREHEN 41626 [facility] LAB DORIAN SIVE 2 [facility] METABOLIC [facility]ING HOLDING PANEL POLYSOM 68872 STANLEY SAMANTA STANLEY SAMANTA 6/>YRS 1 SLEEP 4/> ADDL ADOLFO ATTND POLYSOM 33018 [place] 6/>YRS 1 [facility] SLE[facility] 4/> [facility] ADDL ADOLFO ATTND DUP-SCAN 26528 STANLEY SAMANTA STANLEY SAMANTA ARTL EDMOND 1 ABDL/PEL/ SCROT&/RP R ORGN COM CATECHOLA 27931 [facility] [place] MINES 1 [facility] ALEXIS ECHO 74789 STANLEY SAMANTA STANLEY SAMANTA TTHRC R-T 1 2D W/WOM-MOD E COMPL SPEC&COLR D METANEPHR 32996 [place] AAKASH 1 [facility] METANEPHR 77881 [place] AAKASH 1 [place] [address] [place] B[place] THYROID 1 [facility] NG HORMONE TSH COLLECTIO 50248 [place] N VENOUS 1 [facility] VENIPUNCT URE CREATINE 68823 [facility] KINASE 1 [facility] BLOOD 81205 MARGARITAON BUDDYURBON COUNT [address] [facility] AUTO&AUTO DIFRNTL WBC CRITICAL 90685 MIGUEL ANGEL CRUZ CARE 1 EMERGENCY ILL/INJUR SERVICES ED PATIENT INIT 30-[place] [address] KENDRA GARDNER TROPONIN 1 [facility] KEITH BASIC 52145 KENDRA GARDNER METABOLIC 1 [facility] [place] [address] KENDRA GARDNER HEAD/BRAI 1 [facility] W/O HOSPITAL HOSPITAL CONTRAST MATERIAL ECG 74060 MIGUEL ANGEL CRUZ ROUTINE 1 EMERGENCY ECG SERVICES W/LEAST 12 LDS I&R ONLY CREATINE 67003 KENDRA GARDNER KINASE MB 1 [facility] ONLY COLLECTIO 66133 [facility] N VENOUS 1 [facility] VENIPUNCT URE URNLS DIP 27134 [facility] 1 [facility] HOSPITAL LET REAGENT AUTO MICROSCOP Y THERAPEUT 25309 [address] [facility]ARD[address] IC [address] [facility] IV PUSH EACH NEW DRUG ECG 13943 KENDRA GARDNER ROUTINE 1 [facility] W/LEAST 12 LDS TRCG ONLY W/O I&R THER 04668 KENDRA GARDNER PROPH/DX 1 [facility] PUSH SINGLE/1S T SBST/DRUG CRITICAL 43638 ROSSY BLAIR CARE 1 STEFANIE STEFANIE ILL/INJUR ED PATIENT INIT 30-74 MIN ECG 99478 ROSSY BLAIR ROUTINE 1 [facility] STEFANIE ECG W/LEAST 12 LDS I&R ONLY IIV3 86541 HORIZON BLAKE VACCINE 1 [facility] VIRUS 0.5 ML DOSAGE IM USE LIPID 68909 LAB DORIAN LAB DORIAN PANEL 1 [employer] [facility]ING BLOOD 27833 LAB [facility] LAB DORIAN COUNT 1 [employer] COMPLETE HOLDING HOLDING AUTO&AUTO DIFRNTL WBC COMPREHEN 00876 LAB [facility] LAB DORIAN SIVE 1 [employer] METABOLIC HOLDING HOLDING PANEL NONINVASI 37536 H[facility]IZON BLAKE VE 1 [facility] OXIMETRY SINGLE DETER THERAPEUT 61791 [facility] IC 0 [facility] TIC/DX INJECTION SUBQ/IM APPL 56288 ALL CROTON, MODALITY 9 FAMILY STEPHANIE S 1/> [facility] IONTOPHOR ESIS EA 15 MIN ECG 16256 ALL CROTON, ROUTINE 9 FAMILY STEPHANIE S ECG HEALTH W/LEAST CARE 12 LDS W/I&R NON-INVAS 89870 ALL CROTON, 9 FAMILY BROWN S PHYSIOLOG HEALTH IC STD CARE EXTREMITY ART 2 LEVEL APPL 99202 ALL CROTON, MODALITY 9 FAMILY STEPHANIE S 1/> AREAS HEALTH ELEC CARE STIMJ UNATTENDE D BRNCDILAT 59506 ALL CROTON, RSPSE 9 FAMILY STEPHANIE S SPMTRY HEALTH PRE&POST- CARE BRNCDILAT ADMN VISUAL 03240 ALL CROTON, FIELD XM 9 FAMILY STEPHANIE S UNI/BI HEALTH W/INTERPR CARE ETJ LIMITED EXAM BIOMPEDAN 59387 ALL CROTON, CE-DERIVE 9 FAMILY STEPHANIE S D HEALTH PHYSIOLOG CARE IC CV ANALYSIS THYROID 08014 LAB D[facility]IAN LAB DORIAN HORM 9 AMERIC AMERIC UPTK/THYR HOLDING HOLDING OID HORMONE BINDING RATIO GENERAL 48561 LAB D[facility]IAN LAB DORIAN HEALTH 9 [employer] [place] [address] LAB DORIAN LAB DORIAN THYROXINE 9 AMERIC [place] [place] [address] LAB DORIAN LAB DORIAN TRIIODOTH 9 AMERIC AMERIC YRONINE HOLDING HOLDING T3 TOTAL TT3 BILIRUBIN 23752 LAB D[facility] LAB DORIAN DIRECT 9 [employer] HOLDING LIPID 04311 LAB [facility] LAB DORIAN PANEL 9 [employer] [place] [address] LAB DORIAN LAB DORIAN PROSTATE 9 AMERIC [employer] SPECIFIC HOLDING HOLDING ANTIGEN TOTAL Encounters Encounter Start End Date Code Location Performer Type Date [facility] S[facility] - 7 7 [facility] OUTPATIEN [facility] S[facility] - 7 7 [facility] OUTPATIEN [facility] T OFFICE 16441 [facility] 7 7 PHYSICIAN T VISIT S GROUP 25 MINUTES [facility] - 7 7 [facility] OUTPATIEN INC T OFFICE 07867 [facility] OUTPATIEN 7 7 [facility] T VISIT INC 10 MINUTES EMERGENCY 47289 [facility] JONAS 7 7 [facility] DEPARTMEN EMERGENCY T VISIT PHYS HIGH/URGE NT SEVERITY EMERGENCY 08080 [facility] EYAL II DEPT 7 7 [facility] VISIT EMERGENCY HIGH PHYS SEVERITY& THREAT FUNCJ EMERGENCY 57522 [facility] SWINEY 6 6 [place] PAT DEPARTMEN EMERGENCY T VISIT PHYS MODERATE SEVERITY OFFICE 53678 [facility] STONE YOUNG OUTPATIEN 6 6 PHYSICIAN T VISIT S GROUP 15 MINUTES EMERGENCY 28664 [facility] CARMELLA 6 6 [place] JEA DEPARTMEN EMERGENCY T VISIT PHYS MODERATE SEVERITY EMERGENCY 03632 [facility] DE LA CRUZ 6 6 [place] RONALD DEPARTMEN EMERGENCY T VISIT PHYSI MODERATE SEVERITY [facility] - 6 6 [facility] OUTPATIEN INC T EMERGENCY 38891 [facility] 6 6 [facility] DEPARTMEN INC T VISIT LIMITED/M INOR PROB EMERGENCY 28979 STALIN NELSON 6 6 PHYSICIAN DEPARTMEN S, PLLC T VISIT MODERATE SEVERITY OFFICE 54437 [facility] AL OUTPATIEN 6 6 PHYSICIAN NICOLE T VISIT S GROUP 15 MINUTES EMERGENCY 51739 [facility] RYAN 6 6 [place] JENNIFER DEPARTMEN EMERGENCY T VISIT PHYS HIGH/URGE NT SEVERITY EMERGENCY 34710 [facility] SOKAN BAB 5 5 [facility] DEPARTMEN EMERGENCY T VISIT PHYS MODERATE SEVERITY EMERGENCY 37719 [facility] DE LA CRUZ 5 5 [place] RONALD DEPARTMEN EMERGENCY T VISIT PHYS MODERATE SEVERITY OFFICE 17940 [facility] OUTPATIEN 5 5 PHYSICIAN T VISIT S GROUP 15 MINUTES OFFICE 54552 [facility] AL OUTPATIEN 5 5 PHYSICIAN NICOLE T NEW 30 S GROUP MINUTES OFFICE 06980 [facility] OUTPATIEN 4 4 T NEW 30 MINUTES [facility] - 3 3 [facility] T EMERGENCY 14674 [facility]PT 3 3 [facility] HIGH SEVERITY& THREAT [facility] 3 3 [facility] T OFFICE 75975 KATHY HOPKINS OUTPATIEN 3 3 MEDICAL TIA T NEW 45 SERV MINUTES FOUNDATIO OFFICE 73764 Natasha ZUÑIGA OUTPATIEN 3 3 ZARA Son VISIT [facility] 25 MINUTES [facility] 3 3 [facility] T OFFICE 37315 C ODALYS ZUÑIGA CONSULTAT 3 3 ZARA ROBLERO MD [facility] NEW/ESTAB PATIENT 60 MIN EMERGENCY 59224 MIGUEL ANGEL EYAL DEPT 2 2 EMERGENCY THO VISIT SERVICES HIGH SEVERITY& THREAT [facility] OFFICE 25473 [facility] BLAKE OUTPATIEN 2 2 [facility] C[facility] 15 MINUTES OFFICE 19744 [facility] JUST[facility] OUTPATIEN 2 2 [facility] T[facility] T VISIT [facility] CENTER 15 MINUTES OFFICE 68864 [facility] TAUL[facility] OUTPATIEN 2 2 [facility] WILL[facility] T VISIT E CENTER 10 MINUTES OFFICE 18709 [facility] OUTPATIEN 2 2 [facility] CENTER 15 MINUTES OFFICE 44878 [facility] STANLEY SAMANTA OUTPATIEN 1 1 T VISIT 15 MINUTES [facility] - 1 1 [facility] T OFFICE 55997 STANLEY SAMANTA STANLEY SAMANTA OUTPATIEN 1 1 T VISIT 15 MINUTES [facility] 1 [facility] [place] - 1 1 [facility] T OFFICE 84477 BLAKE BLAKE OUTPATIEN 1 1 JOHN JOHN T VISIT 15 MINUTES OFFICE 22807 ST[facility] SAM[facility] STANLEY SAMANTA OUTPATIEN 1 1 T NEW 60 MINUTES [facility]OSP[facility] [place] - 1 1 [facility] T EMERGENCY 57630 [place] 1 1 [facility] T VISIT HIGH/URGE NT SEVERITY OFFICE 01541 BLAKE BLAKE OUTPATIEN 1 1 JOHN JOHN T VISIT 15 MINUTES OFFICE 59063 [facility]LAKE OUTPATIEN 1 1 [facility] C[facility] 15 MINUTES OFFICE 14933 [facility] OUTPATIEN 1 1 [facility] T VISIT 5 E CENTER MINUTES OFFICE 89898 [facility] OUTPATIEN 1 1 [facility] VIS[facility] CENTER 15 MINUTES OFFICE 93043 [facility] OUTPATIEN 1 1 [facility] T NEW 30 E CENTER MINUTES EMERGENCY 67511 MIGUEL ANGEL RENO LESLIE 0 0 EMERGENCY [facility] SERVICES T VISIT MODERATE SEVERITY [facility] [place] - 0 0 [facility] T EMERGENCY 01166 [place] 0 0 [facility] T VISIT HIGH/URGE NT SEVERITY OFFICE 59403 IKRAMUDDI IKRAMUDDI OUTPATIEN 9 9 N, WILLIAM N, WILLIAM T VISIT 40 MINUTES OFFICE 02552 IKRAMUDDI IKRAMUDDI OUTPATIEN 9 9 N, WILLIAM N, WILLIAM T VISIT 40 MINUTES OFFICE 99823 ALL TONIE LARIOS 9 9 FAMILY STEPHANIE S T NEW 45 HEALTH MINUTES CARE OFFICE 32061 ARH TONIE ROLAND 9 9 CONNIE NOGUEIRA 20 CLINIC MINUTES EMERGENCY 62216 [facility] 9 9 MEDICAL , MEGHAN DEPARTMEN PARTNERS T [facility]IT [facility] MODERATE SEVERITY EMERGENCY 65184 [facility] 9 [facility] H[facility]URGE NT SEVERITY HOSPITAL CONNIE - 9 9 A R H OUTPATIEN T OFFICE 40844 OWEN SCHILLING 8 8 N, WILLIAM N, WILLIAM T JERO 60 MINUTES
--- OUTSIDE RECORDS SUMMARY | 2017-06-23 07:16 | External Medical Summary Rpt ---
Author Author , TRAVON COOL Address Unknown Phone [email or web address] Care Team Providers Care Clinical Services Consultant Name Role Phone DE LA CRUZ JERRY CARDENASNETT Unavailable Unavailable BRAIN BETTS Unavailable Unavailable [facility] Unavailable Unavailable HOSPITAL, [facility] GEORGE CAR, GEORGE Unavailable Unavailable CAR Natasha [...] Unavailable Unavailable RHO ECHAVARRIA, ECHAVARRIA Unavailable Unavailable [facility] Unavailable Unavailable INC, [facility] Unavailable Unavailable HOSPITAL P, [facility] P [facility], Unavailable Unavailable [facility], Unavailable Unavailable [facility] Unavailable Unavailable CENTER, [facility] RENO LESLIE, RENO LESLIE Unavailable Unavailable RENO LESLIE, RENO LESLIE Unavailable Unavailable IKRAMUDDIN, WILLIAM, Unavailable Unavailable IKRAMUDDIN, WILLIAM ROSSY WATTS ROSSY Unavailable Unavailable STEPHANIE LOPEZ S, Unavailable Unavailable LARIOSSTEPHANIE ORTIZ S JUSTICE TON, JUSTICE Unavailable Unavailable TON ABRAHAN III STEFANIE, Unavailable Unavailable ABRAHAN III STEFNAIE [facility] Unavailable Unavailable IM[facility]ING [facility], [facility] KMS NURSE Unavailable Unavailable PRACTITIONER GR, KMSF NURSE PRACTITIONER GR TRACEY MAHAN, Unavailable Unavailable TRACEY MAHAN [facility] Unavailable Unavailable [facility], [facility] Unavailable Unavailable HOLD[facility], [facility] KEYANNA LAURIE, KEYANNA LAURIE Unavailable Unavailable MIGUEL ANGEL, MIGEUL ANGEL Unavailable Unavailable MIGUEL ANGEL, MIGUEL ANGEL Unavailable Unavailable [facility], Unavailable Unavailable [facility], Unavailable [facility]available [facility], Unavailable Unavailable [facility] COATS ASHER, COATS ASHER Unavailable Unavailable COATS ASHER, COATS ASHER Unavailable Unavailable LILLIE BA, Unavailable Unavailable LILLIE BA [facility] Unavailable Unavailable PHARMACY, [facility] SAMANTA STANLEY MD Unavailable Unavailable CONSULTING SERV, SAMANTA STANLEY MD CONSULTING SERV [facility] Unavailable Unavailable EMS, [facility] Unavailable Unavailable EMS, [facility] CARMELLA JEA, CARMELLA Unavailable Unavailable JEA RICE YVO, RICE YVO Unavailable Unavailable SCALF MAU, SCALF MAU Unavailable Unavailable SCHULSTAD SALBADOR, Unavailable Unavailable SCHULSTAD SALBADOR SCIFRES ANG, SCIFRES Unavailable Unavailable ANG SCIFRES ANG, SCIFRES Unavailable Unavailable ANG SOKAN BAB, SOKAN BAB Unavailable Unavailable [facility] Un[facility] Un[facility], [facility] KEANE, KEANE Unavailable Unavailable STEYN PIE, STEYN PIE Unavailable Unavailable STONE, STONE Unavailable Unavailable STONE YOUNG, STONE YOUNG Unavailable Unavailable SWINEY PAT, SWINEY Unavailable Unavailable PAT TAULBEE WILLIAM, TAULBEE Unavailable Unavailable WILLIAM MICHAEL III J, MICHAEL Unavailable Unavailable III J BLAKE JOHN, BLAKE Unavailable Unavailable JOHN BLAKE JOHN, BLAKE Unavailable Unavailable JOHN KELLIE TIA, KELLIE Unavailable Unavailable [facility] [place] [facility] MEGHAN CAO, Unavailable Unavailable MEGHAN CAO Purpose Continuity of Care Document - 12-06-2007 through 2016 Problems Code Diagnosis DOS Provider Status Z0100 ENCOUNTER 04-10-2017 MIGUEL ANGEL EXAM EYES & VISION W/O ABNORMAL FIND R0789 OTHER CHEST 03-04-2017 [facility] P M54.5 Low back 02-03-2017 pain S33.5XXA Sprain of 02-03-2017 ligaments of lumbar spine, initial encounter W55.12XA Struck by 02-03-2017 horse, initial encounter Z72.0 Tobacco use 02-03-2017 E785 HYPERLIPIDE 02-02-2017 [facility] LAURA PHYSICIANS UNSPECIFIED GROUP 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 SYNDROME GROUP I10 ESSENTIAL 02-02-2017 [facility] PRIMARY PHYSICIANS HYPERTENSIO GROUP N J209 ACUTE 01-29-2017 [facility]IS [facility] UNSPECIFIED INC R21 RASH AND 01-29-2017 [facility] OTHER [facility] NONSPECIFIC INC SKIN ERUPTION Z720 TOBACCO USE 01-29-2017 [facility] INC F17.210 NICOTINE 01-28-2017 DEPENDENCE, CIGARETTES, UNCOMPLICAT ED I10 ESSENTIAL 01-28-2017 (PRIMARY) HYPERTENSIO N R07.9 CHEST PAIN, 01-28-2017 UNSPECIFIED Z79.899 OTHER LONG 01-28-2017 TERM (CURRENT) DRUG THERAPY T42676 PAIN IN 01-28-2017 [facility] LEFT LEG [facility] EMS R0602 SHORTNESS 01-25-2017 [facility] [place] OF BREATH RADIOLOGY R079 CHEST PAIN 01-25-2017 [facility] UNSPECIFIED N EMERGENCY PHYS J0140 ACUTE 09-27-2016 [facility] PANSINUSITI N EMERGENCY S PHYS UNSPECIFIED J324 CHRONIC 09-27-2016 [facility] PANSINUSITI N EMERGENCY S PHYS R51 HEADACHE 09-27-2016 [facility] [place] RADIOLOGY L237 ALLERGIC 08-04-2016 [facility] CONTACT N EMERGENCY DERMATITIS PHYS D/T PLANTS EXCP FOOD M5440 LUMBAGO 08-03-2016 [place] [facility] UNSPECIFIED SIDE M545 LOW BACK 08-03-2016 [facility] PAIN PHYSICIANS GROUP B0089 OTHER 05-13-2016 [facility] HERPESVIRAL N EMERGENCY INFECTION PHYS R0781 PLEURODYNIA 01-10-2016 [facility] N EMERGENCY PHYSI M542 CERVICALGIA 12-24-2015 [place] [facility] S21164 MUSCLE 12-24-2015 [facility] SPASM OF [facility]OS[facility] BACK INC Z93495 OTHER 12-24-2015 [facility] MUSCLE [facility] SPASM INC B28385G UNSPECIFIED 09-23-2015 [facility] SPRAIN N EMERGENCY LEFT FOOT PHYS INITIAL ENCOUNTER P47828G UNSPECIFIED 09-23-2015 [facility] [place] INJURY RADIOLOGY LEFT FOOT INITIAL ENCOUNTER Y9864OQ OTHER 09-23-2015 [facility] CONTACT N EMERGENCY WITH OTHER PHYS MAMMALS INITIAL ENCNTR Q62318 PREGLAUCOMA 08-05-2015 SCIFRES ANG , UNSPECIFIED , BILATERAL 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 H524 PRESBYOPIA 08-05-2015 SCIFRES ANG A24720P PUNCT WND 07-16-2015 [facility] NO FB RT N EMERGENCY INDX FINGER PHYS NO DAMGE NAIL INT D39MVVB EXPOSURE TO 07-16-2015 [facility] OTHER N EMERGENCY SPECIFIED PHYS FACTORS INITIAL ENC 63573 DEHYDRATION 03-01-2015 [facility] N EMERGENCY PHYS 4779 ALLERGIC 03-01-2015 [facility] RHINITIS N EMERGENCY CAUSE PHYS UNSPECIFIED 64594 IMPOTENCE 01-03-2015 [facility]IC PHYSICIANS ORIGIN GROUP V016 CONTACT 01-03-2015 [facility] WITH OR PHYSICIANS EXPOSURE TO GROUP VENEREAL DISEASES 2724 OTHER AND 11-28-2014 [facility] UNSPECIFIED PHYSICIANS GROUP HYPERLIPIDE LAURA 4019 UNSPECIFIED 11-28-2014 [facility] ESSENTIAL PHYSICIANS HYPERTENSIO GROUP N 45990 OTHER 11-28-2014 [facility] 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 4011 ESSENTIAL 01-12-2014 PAULY STERLING HYPERTENSIO N, BENIGN 97772 CHEST PAIN 08-04-2013 RENO LESLIE UNSPECIFIED 40670 OTHER CHEST 08-04-2013 [facility] V1582 PERS HX 08-04-2013 [facility] TO[facility] USE [facility] V1749 FAMILY 08-04-2013 [facility]ORY OF [facility] OTHER HOSPITAL CARDIOVASCU LAR DISEASES V5869 LONG-TERM 08-04-2013 [facility] (CURRENT) [facility]ITY USE OF HOSPITAL OTHER MEDICATIONS 27253 CALCU 12-09-2012 [facility] NURSE XANDER PRACTITIONE W/O MENTION R GR CHOLECYST/O BST 18870 CALCU 12-08-2012 [facility] W/OTH HOSPI CHOLECYST W/O MENTION OBST 39286 CHRONIC 12-08-2012 [place] [facility] CHOLECYSTIT SERV IS FOUNDATIO V6441 LAPAROSCOPI 12-08-2012 [place] [facility] C SURGICAL SERV PROC FOUNDATIO COVERTED OPEN PROC 5758 OTHER 10-28-2012 [facility] [place] SPECIFIED RADIOLOGY DISORDER OF GALLBLADDER 5680 PERITONEAL 10-10-2012 C ODALYS ZUÑIGA MD PSC 67515 CALCU 10-10-2012 Ntaasha ZUÑIGA W/TEMO COHN PSC CHOLCYST W/O MENTION OBST V641 SURG/OTH 10-10-2012 C [facility] PROC NOT ZARA HERNANDEZ MD [facility] BECAUSE CONTRAINDIC ATION 2720 PURE 09-28-2012 [facility] HYPERCHOLES ZARA SANTA MD PSC 03820 ABDOMINAL 09-28-2012 C [facility] PAIN RIGHT ZARA EWING MD [facility] QUADRANT 7873 FLATULENCE 09-21-2012 C OD[facility] ERUCTATION DOUG COHN [facility] PAIN 78923 ABDOMINAL 09-06-2012 JACKELINE PAIN, [facility] EMS 33665 ABDOMINAL 09-06-2012 [facility] [place] PAIN OTHER RADIOLOGY SPECIFIED SITE 2721 PURE 05-18-2012 [facility] HYPERGLYCER HEALTHCARE IDEMIA CENTER 87770 OSTEOARTHRO 05-18-2012 [facility] S UNSPEC HEALTHCARE WHETHER CENTER GEN/LOC UNSPEC SITE 7242 LUMBAGO 05-18-2012 [facility] HEALTHCARE CENTER 12248 SPASM OF 01-12-2012 [facility] MUSCLE HEALTHCARE CENTER 93678 OTHER 01-12-2012 [facility] ABNORMAL HEALTHCARE GLUCOSE CENTER 2722 MIXED 08-10-2011 SAMANTA STANLEY HYPERLIPIDE [facility] CONSULTING SERV 36923 HYPERSOMNIA 08-10-2011 SAMANTA STANLEY UNSPECIFIED CONSULTING SERV 57037 SHORTNESS 08-10-2011 SAMANTA STANLEY OF BREATH CONSULTING SERV 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 43082 OTHER 08-02-2011 [facility] RESPIRATORY ABNORMALITI ES V8532 BODY MASS 08-02-2011 [facility] INDEX COMMUNITY 32.0-32.9 HOSPITAL ADULT 00190 RECURRENT 07-28-2011 [facility] SAMANTA HYPERSOMNIA 38990 PRECORDIAL 07-28-2011 [facility] SAMANTA PAIN 7804 DIZZINESS 07-24-2011 BLAKE JOHN AND GIDDINESS 7840 HEADACHE 07-24-2011 BLAKE JOHN V0481 NEED 06-24-2011 [facility] PROPHYLACTI HEALTHCARE C CENTER VACCINATION &INOCULATIO N FLU 73352 OTHER 06-05-2011 [facility] DISEASES OF HEALTHCARE NASAL CENTER CAVITY AND SINUSES 490 BRONCHITIS 06-05-2011 [facility] NOT HEALTHCARE SPECIFIED CENTER ACUTE OR CHRONIC 7862 COUGH 06-05-2011 [facility] 6929 CONTACT 01-15-2010 MIGUEL ANGEL DERMATITIS& EMERGENCY [...] DORIAN DISEASES AMERIC BLOOD&BLOOD HOLDING -FORMING ORGANS 71489 ATHEROSLERO 06-05-2009 ALL FAMILY NATV [facility] CARE EXTREM W/INTERMIT CLAUDICAT 74337 ATHEROSLERO 06-05-2009 ALL FAMILY [place] ART [facility] CARE EXTREMITIES W/REST PAIN 7245 UNSPECIFIED 06-05-2009 ALL FAMILY BACKACHE HEALTH CARE 16322 ELEVATED 06-05-2009 [facility] PROSTATE AMERIC SPECIFIC HOLDING ANTIGEN 44696 OPEN WOUND 09-21-2008 [facility] WITHOUT CLINIC MENTION COMPLICATIO N 8820 OPEN WOUND 09-19-2008 ROSALES A HAND NO R H FINGER ALONE W/O MENTION COMP 9140 HAND NO 09-19-2008 [facility]INGER [facility] [employer] BURN W/O INF E9060 DOG BITE 09-19-2008 [facility] 4659 ACUTE URIS 05-16-2008 IKRAMUDDIN, [...] 08 WN ZA 61 17 17 93 VT 5 45 PH IN AR E MA 10 CY MG OF TA CY BL NT ET HI AN A NA 65 08 09 60 30 00 HO Ac VT 16 -1 -1 .0 00 ME ti [...] 10 5- 5- 00 06 TO ve VT 27 20 20 08 WN IL 10 [...] 08 WN ZA 61 17 17 93 VT 5 45 PH IN AR E MA 10 CY MG OF TA CY BL NT ET HI AN A NA 68 07 08 60 30 00 HO Ac VT 46 -1 -1 .0 00 ME ti [...] 10 8- 8- 00 06 TO ve VT 27 20 20 08 WN IL 10 [...] 10 0- 1- 00 06 TO ve VT 27 20 20 08 WN IL 10 17 17 75 8 30 PH 40 AR MA MG CY TA OF BL ET CY NT HI AN A CY 69 06 07 90 30 00 HO Ac CL 09 -2 -2 .0 00 ME ti OB 70 0- 1- 00 06 TO ve EN 84 20 20 08 WN ZA 61 17 17 93 VT 5 45 PH IN AR E MA 10 CY MG OF TA CY BL NT ET HI AN A NA 68 06 07 60 30 00 HO Ac VT 46 -2 -2 .0 00 ME ti [...] 05 06 60 30 00 HO Ac VT 46 -2 -2 .0 00 ME ti [...] 08 WN ZA 61 17 17 75 VT 5 28 PH IN AR E MA [...] 10 3- 3- 00 06 TO ve VT 27 20 20 08 WN IL 10 17 17 75 8 30 PH 40 AR MA MG CY TA OF BL ET CY NT HI AN A ME 59 05 06 21 5 00 WA Ac TH 74 -1 -2 .0 00 L- ti YL 60 9- 3- 00 07 MA ve VT 00 20 20 41 RT ED 10 [...] 10 8- 9- 00 06 TO ve VT 27 20 20 07 WN IL 10 17 17 59 8 12 PH 40 AR MA MG CY TA OF BL ET CY NT HI AN A LI 68 03 04 30 30 00 HO Ac SI 00 -2 -2 .0 00 ME ti NO 10 1- - 06 TO ve VT 27 20 20 07 WN IL 10 [...] 50 1- 4- 00 06 TO ve VT 64 20 20 07 WN IL 01 [...] 50 3- 4- 00 06 TO ve VT 64 20 20 07 WN IL 01 17 17 59 0 12 PH 40 AR MA MG CY TA OF BL ET CY NT HI AN A ME 00 01 02 20 5 00 HO Ac TO 09 -1 -1 .0 00 ME ti CL 32 6- 7- 00 06 TO ve OP 20 20 20 07 WN RA 30 17 17 95 VT 5 76 PH DE AR MA 10 [...] 50 6- 7- 00 06 TO ve VT 64 20 20 07 WN IL 01 [...] UL CY E NT HI AN A VT 37 09 10 3 30 30 HO [...] 2- 2- 00 TO 71 BL ve VT 10 20 20 WN 9 E IL 21 11 11 ER 0 PH IC 20 AR A MA B MG CY TA BL ET VT 37 09 09 3 30 30 HO [...] 3- 3- 00 TO 71 BL ve VT 10 20 20 WN 3 E IL [...] -0 -1 .0 IG 53 RA ti VT 85 2- 4- 00 HB 45 MU [...] LL M 11 09 09 1 0 VT ES MG OF LY S TA PH BL AR ET M CE 68 01 01 00 15 5 MC 10 WA Ac PH 18 -0 -1 .0 DO 78 DN ti AL 00 7- 5 WE 50 ER ve EX 12 20 20 LL 1 KA IN 20 09 09 R 2 VT RA 50 OF HU 0 L MG [...] 5 T 20 08 08 DE 5 VT NV OF ER D PH AR M [...] 4 ai 20 08 08 la 5 VT bl OF e PH AR M PE [...] Procedure DOS Code Location Performer Comment DETERMINA 36149 [facility] TION 7 REFRACTIV E STATE OPHTH 89588 [facility] 7 XM&EVAL COMPRE NEW PT 1/> VST CV STRS 53941 SORAIDA DE LA PZA TST 7 [facility] RX CONT P ECG I&R ONLY CV STRS 24583 S[facility]AIDA DE LA PAZ TST 7 [facility]OR [facility] RX CONT P ECG W/O I&R CV STRS 10274 [facility] QUIGLEY TST 7 [facility] XERS&/OR INC INC RX CONT ECG TRCG ONLY ECHO 10041 [facility] QUIGLEY TTHRC R-T 7 [facility] HOSP 2D INC INC W/WOM-MOD E COMPL SPEC&COLR D THERAPEUT 86245 [facility] QUIGLEY IC 7 [facility] HOSP PROPHYLAC INC INC TIC/DX INJECTION SUBQ/IM AMB A0427 [facility] SERVICE 7 [facility] EMERGENCY EMS EMS TRANSPORT LEVEL 1 GROUND A0425 [facility] MILEAGE 7 [facility] STATUTE EMS EMS MILE RADIOLOGI 82088 [facility] [place] ECHAVARRIA C 7 RADIOLOGY [place]INAT[place] [address] [facility] [place] KEANE HEAD/BRAI 7 RADIOLOGY N W/[place] [address] [facility] [place] KEANE MAXILLOFA 7 RADIOLOGY CIAL W/O CONTRAST MATERIAL RADEX 62890 [place] JOSEF SPINE 6 MEDICAL SOPHY LUMBOSACR IMAGING AL ASS MINIMUM 4 VIEWS RADEX 39152 [facility] [place] GEORGE RIBS UNI 6 RADIOLOGY CAR W/POSTERO ANT CH MINIMUM 3 VIEWS RADEX 74483 [facility] QUIGLEY SPINE 6 [facility] LUMBOSACR INC INC AL MINIMUM 4 VIEWS RADEX 62063 [facility] QUIGLEY SPINE 6 [facility] CERVICAL INC INC 4 OR 5 VIEWS UNCLASSIF J3490 [facility] QUIG[facility] IED DRUGS 6 [facility] INC INC RADEX 01070 [facility] [place] BARRY FOOT 6 RADIOLOGY RHO COMPLETE MINIMUM 3 VIEWS OPHTH 56258 SCIFRES SCIFRES MEDICAL 5 ANG ANG XM&EVAL COMPRE NEW PT 1/> VST ECG 10249 [facility] ROUTINE 3 [facility] W/LEAST 12 LDS TRCG ONLY W/O I&R BASIC 12299 [facility] METABOLIC 3 [facility] [place] [address] [facility] TROPONIN 3 [facility] KEITH BLOOD 92535 [facility] COUNT 3 [facility] AUTO&[place] [address] KENDRA GARDNER LIPASE 3 [facility] ECG 95154 SHADIA NELSON ROUTINE 3 ECG W/LEAST 12 LDS I&R ONLY RADIOLOGI 22343 KENDRA GARDNER C 3 [facility] ON CHEST SINGLE [place]IEW FRONTAL COLLECTIO 79205 KENDRA GARDNER N VENOUS 3 [facility] 08091 KMSF RICE YVO DISCHARGE 3 NURSE DAY PRACTITIO MANAGEMEN NER GR T 30 MIN/< LEVEL III 01383 [facility] LAURIE SURG 3 Y OF PATHOLOGY [place] [facility] GROSS&NICOLE ROSCOPIC EXAM CHOLECYST 48394 [place] KELLIE ECTOMY 3 MEDICAL TIA SERV FOUNDATIO ANES 03044 [place] STEYN PIE INTRAPERI 3 MEDICAL TONEAL SERV UPPER FOUNDATIO ABDOMEN W/LAPS NOS MRI 58885 [facility] [place] ABRAHAN ABDOMEN 3 RADIOLOGY III STEFANIE W/O CONTRAST MATERIAL ANES 05576 [place] JOY INTRAPERI 3 ANESTHESI NICOLE TONEAL A GROUP UPPER PS ABDOMEN W/LAPS NOS LAPAROSCO 55223 C ODALYS C ODALYS PY SURG 3 BUBBAAD ZARA CHOLECYST PSC MD PSC ECTOMY ECG [address] [facility]EL ROUTINE 3 CHARLIE III J ECG CARDIOLOG W/LEAST Y CLINIC 12 LDS I&[place] [address] KENDRA GARDNER ABDOMINAL 3 [facility] TIME W/IMAGE LIMITED AMB A0427 [facility] SERVICE 2 KENDRA GARDNER [facility] EMERGENCY [place] [address] [facility] [place] KOSTELIC ABDOMEN & 2 RADIOLOGY NEGRITO PELVIS W/O CONTRAST MATERIAL RADIOLOGI 54829 [facility] [place] SCALF MAU C EXAM 2 RADIOLOGY CHEST 2 VIEWS FRONTAL&L ATERAL GROUND A0425 [facility] MILEAGE [address] [facility] STATUTE EMS EMS MILE [facility] 480[address] LAB [facility]IAN LAB DORIAN SIVE 2 AMERIC AMERIC METAB[place] [address] [facility] LAB DORIAN FREE 2 AMERIC AMERIC [place] [address] [facility] D[facility] THYROID 2 AMERIC AMERIC STIMULATI HOLDING HOLDING NG HORMONE TSH HEMOGLOBI 37584 [facility] DORIAN N 2 AMERIC AMERIC GLYCOSYLA HOLDING [place] [address] [facility] LAB DORIAN TRIIODOTH 2 AMERIC AMERIC YRONINE HOLDING HOLDING T3 [place] [place] [address] [facility]IAN LAB DORIAN THYROID 2 AMERIC AMERIC STIMULATI HOLDING HOLDING NG HORMONE TSH LIPID 13823 [facility] D[facility] PANEL 2 AMERIC AMERIC HOLDING HOLDING COMPREHEN 81953 [facility] LAB DORIAN SIVE 2 AMERIC AMERIC METABOLIC HOLDING HOLDING PANEL POLYSOM 89492 ST[facility] SAMANTA STANLEY SAMANTA 6/>YRS 1 SLEEP 4/> ADDL ADOLFO ATTND POLYSOM 19829 [facility] 6/>YRS 1 [facility] SLEEP 4/> [facility] ADDL ADOLFO ATTND DUP-SCAN 59257 ST[facility] SAMANTA STANLEY SAMANTA ARTL EDMOND 1 ABDL/PEL/ SCROT&/RP R ORGN COM CATECHOLA 00961 [facility] [place] MINES 1 [facility] ALEXIS ECHO 83730 ST[facility]LEY SAMANTA STANLEY SAMANTA TTHRC R-T 1 2D W/WOM-MOD E COMPL SPEC&COLR D METANEPHR 49973 [facility] AAKASH 1 [facility] METANEPHR 02603 [place] AAKASH 1 [place] [address] [place] THYROID 1 [facility] NG HORMONE TSH COLLECTIO 47611 [place] N VENOUS 1 [facility] VENIPUNCT URE CREATINE 89854 [facility]UDDY[facility] KINASE 1 [facility] BLOOD 15427 [facility] [facility] COUNT 1 [facility] AUTO&AUTO DIFRNTL WBC CRITICAL 25273 MIGUEL ANGEL CRUZ CARE 1 EMERGENCY ILL/INJUR SERVICES ED PATIENT INIT 30-[place] [address] KENDRA GARDNER TROPONIN 1 [facility] KEITH BASIC 61310 KENDRA GARDNER METABOLIC 1 [facility] [place] [place] [address] KENDRA GARDNER HEAD/BRAI 1 [facility] W/O HOSPITAL HOSPITAL CONTRAST MATERIAL ECG 60440 MIGUEL ANGEL CRUZ ROUTINE 1 EMERGENCY ECG SERVICES W/LEAST 12 LDS I&R ONLY CREATINE 18447 KENDRA GARDNER KINASE MB 1 [facility] ONLY COLLECTIO 88102 [facility]IT[facility] GARDNER N VENOUS 1 [facility] VENIPUNCT URE URNLS DIP 37950 [facility]UDDYFREEMAN NEOSHO HOSPITALLISBETH GARDNER 1 [facility] HOSPITAL LET REAGENT AUTO MICROSCOP Y THERAPEUT 15915 KENDRA GARDNER IC 1 [facility] IV PUSH EACH NEW DRUG ECG 93312 KENDRA GARDNER ROUTINE 1 [facility] W/LEAST 12 LDS TRCG ONLY W/O I&R THER 39572 KENDRA GARDNER PROPH/DX 1 [facility] HOSPITAL PUSH SINGLE/1S T SBST/DRUG CRITICAL 74405 ROSSY BLAIR CARE 1 STEFANIE STEFANIE ILL/INJUR ED PATIENT INIT 30-74 MIN ECG 78552 ROSSY BLAIR ROUTINE 1 [facility] STEFANIE ECG W/LEAST 12 LDS I&R ONLY IIV3 34309 HORIZON BLAKE VACCINE 1 [facility] VIRUS 0.5 ML DOSAGE IM USE LIPID 88596 LAB [facility]IAN LAB DORIAN PANEL 1 AMERIC AMERIC HOLDING HOLDING BLOOD 74613 LAB [facility] LAB DORIAN COUNT 1 AMERIC AMERIC COMPLETE HOLDING HOLDING AUTO&AUTO DIFRNTL WBC COMPREHEN 15482 LAB [facility] LAB DORIAN SIVE 1 AMERIC AMERIC METABOLIC HOLDING HOLDING PANEL NONINVASI 31045 HORIZON BLAKE VE 1 [facility] OXIMETRY SINGLE DETER THERAPEUT 45090 [facility] IC 0 [facility] TIC/DX INJECTION SUBQ/IM APPL 32858 ALL IMPERIAL, MODALITY 9 FAMILY STEPHANIE S 1/> AREAS [facility] IONTOPHOR ESIS EA 15 MIN ECG 19481 ALL IMPERIAL, ROUTINE 9 FAMILY STEPHANIE S ECG HEALTH W/LEAST CARE 12 LDS W/I&R NON-INVAS 89842 ALL IMPERIAL, 9 FAMILY BROWN S PHYSIOLOG HEALTH IC STD CARE EXTREMITY ART 2 LEVEL APPL 38800 ALL IMPERIAL, MODALITY 9 FAMILY STEPHANIE S 1/> AREAS HEALTH ELEC CARE STIMJ UNATTENDE D BRNCDILAT 07758 ALL IMPERIAL, RSPSE 9 FAMILY STEPHANIE S SPMTRY HEALTH PRE&POST- CARE BRNCDILAT ADMN VISUAL 51712 ALL IMPERIAL, FIELD XM 9 FAMILY STEPHANIE S UNI/BI HEALTH W/INTERPR CARE ETJ LIMITED EXAM BIOMPEDAN 89611 ALL IMPERIAL, CE-DERIVE 9 FAMILY STEPHANIE S D HEALTH PHYSIOLOG CARE IC CV ANALYSIS THYROID 76872 [facility] HORM 9 AMERIC AMERIC UPTK/THYR HOLDING HOLDING OID HORMONE BINDING RATIO GENERAL 40283 [facility] HEALTH 9 [employer] [place] [address] [facility] THYROXINE 9 [employer] [place] [address] [facility] TRIIODOTH 9 AMERIC AMERIC YRONINE HOLDING HOLDING T3 TOTAL TT3 BILIRUBIN 50918 [facility] DIRECT 9 [employer]IC [employer] HOLDING HOLDING LIPID 21070 [facility] PANEL 9 [place] [address] [facility] PROSTATE 9 [employer] [employer] SPECIFIC HOLDING HOLDING ANTIGEN TOTAL Encounters Encounter Start End Date Code Location Performer Type Date [facility] T OFFICE 34432 [facility] 7 7 PHYSICIAN T [facility]ISIT S GROUP 25 MINUTES [facility] T OFFICE 96463 [facility] 7 7 [facility] T VISIT INC 10 MINUTES EMERGENCY 84951 [facility] JON[facility] 7 7 [facility] DEPARTMEN EMERGENCY T VISIT PHYS HIGH/URGE NT SEVERITY EMERGENCY 44292 [facility] EYAL II DEPT 7 7 [facility] VISIT EMERGENCY HIGH PHYS SEVERITY& THREAT FUNCJ EMERGENCY 02052 [facility] SWINEY 6 6 [facility] PAT DEPARTMEN EMERGENCY T VISIT PHYS MODERATE SEVERITY OFFICE 76222 [facility] STONE YOUNG OUTPATIEN 6 6 PHYSICIAN T VISIT S GROUP 15 MINUTES EMERGENCY 88591 [facility] CARMELLA 6 6 [facility] JEA DEPARTMEN EMERGENCY T VISIT PHYS MODERATE SEVERITY EMERGENCY 02524 [facility] DE [facility] CRU[facility] 6 6 [facility] RONALD DEPARTMEN EMERGENCY T VISIT PHYSI MODERATE SEVERITY [facility] T EMERGENCY 11309 [facility] 6 6 [facility] DE[facility] INC T VISIT LIMITED/M INOR PROB EMERGENCY 68281 [facility] NEL[facility] 6 6 PHYSICIAN DEPARTMEN S, PLLC T VISIT MODERATE SEVERITY OFFICE 86282 [facility] AL OUTPATIEN 6 6 PHYSICIAN NICOLE T VISIT S GROUP 15 MINUTES EMERGENCY 40385 [facility] RYAN 6 6 [facility] JENNIFER DEPARTMEN EMERGENCY T VISIT PHYS HIGH/URGE NT SEVERITY EMERGENCY 16876 [facility] SOKAN BAB 5 5 [facility] DEPARTMEN EMERGENCY T VISIT PHYS MODERATE SEVERITY EMERGENCY 73674 [facility] 5 5 [facility] RONALD DEPARTMEN EMERGENCY T VISIT PHYS MODERATE SEVERITY OFFICE 71332 [facility] OUTPATIEN 5 5 PHYSICIAN T VISIT S GROUP 15 MINUTES OFFICE 42200 [facility] OUTPATIEN 5 5 PHYSICIAN NICOLE T NEW 30 S GROUP MINUTES OFFICE 53333 [facility] OUT[facility] 4 4 T NEW 30 MINUTES [facility] - 3 3 [facility] T EMERGENCY 31205 [facility] [place] HIGH SEVERITY& [facility] 3 [facility] OFF[facility] [id number] KATHY HOPKINS OUTPATIEN 3 3 MEDICAL TIA T NEW 45 SERV MINUTES FOUNDATIO OFFICE 75176 Natasha ZUÑIGA OUTPATIEN 3 3 ZARA Son VISIT [facility] 25 MINUTES [facility] 3 3 [facility] T OFFICE [id number] C ODALYS ZUÑIGA CONSULTAT 3 3 ZARA ROBLERO MD [facility] NEW/ESTAB PATIENT 60 MIN EMERGENCY [id number] MIGUEL ANGEL EYAL DEPT 2 2 EMERGENCY THO VISIT SERVICES HIGH SEVERITY& THREAT [facility] OFFICE 68447 H[facility]IZON BLAKE OUTPATIEN 2 2 [facility] 15 MINUTES OFFICE 56388 [facility] JUSTICE OUTPATIEN 2 2 [facility] 15 MINUTES OFFICE 17344 [facility] TAULBEE OUTPATIEN 2 2 [facility] 10 MINUTES OFFICE 13153 [facility] TAULBEE OUTPATIEN 2 2 [facility] 15 MINUTES OFFICE 44435 STANLEY SAMANTA STANLEY SAMANTA OUTPATIEN 1 1 T VISIT 15 MINUTES [facility]OSPITAL [facility]LL[facility] - 1 1 [facility] T OFFICE 43145 STANLEY SAMANTA STANLEY SMAANTA OUTPATIEN 1 1 T VISIT 15 MINUTES [facility] 1 [facility] [place] - 1 1 [facility] T OFFICE 77394 BLAKE BLAKE OUTPATIEN 1 1 JOHN JOHN T VISIT 15 MINUTES OFFICE 67622 STANLEY SAMANTA STANLEY SAMANTA OUTPATIEN 1 1 T NEW 60 MINUTES [facility] [place] - 1 1 [facility] T EMERGENCY 56663 [place] 1 1 [facility] HOSPITAL T VISIT HIGH/URGE NT SEVERITY OFFICE 56698 BLAKE BLAKE OUTPATIEN 1 1 JOHN JOHN T VISIT 15 MINUTES OFFICE 98632 HORIZON BLAKE OUTPATIEN 1 1 [facility] 15 MINUTES OFFICE 75418 HORIZON BLAKE OUTPATIEN 1 1 [facility] VISIT 5 E CENTER MINUTES OFFICE 94604 [facility]IZON BLAKE OUTPATIEN 1 1 [facility] 15 MINUTES OFFICE 09148 [facility]ON BLAKE OUTPATIEN 1 1 [facility] T NEW 30 E CENTER MINUTES EMERGENCY 30797 MIGUEL ANGEL RENO LESLIE 0 0 EMERGENCY [facility] T VISIT MODERATE SEVERITY [facility] [place] - 0 0 [facility] T EMERGENCY 23056 [place] 0 0 [facility], [facility]1983 HOSPITAL T VISIT HIGH/URGE NT SEVERITY OFFICE 94442 IKRAMUDDI IKRAMUDDI OUTPATIEN 9 9 N, WILLIAM N, WILLIAM T VISIT 40 MINUTES OFFICE 93827 IKRAMUDDI IKRAMUDDI OUTPATIEN 9 9 N, WILLIAM N, WILLIAM T VISIT 40 MINUTES OFFICE 13550 ALL TONIE LARIOS 9 9 FAMILY STEPHANIE S T NEW 45 HEALTH MINUTES CARE OFFICE 73344 ARH TONIE ROLAND 9 9 CONNIE NOGUEIRA 20 CLINIC MINUTES EMERGENCY 62943 [facility] 9 [facility] , [facility] MODERATE SEVERITY EMERGENCY 42321 CONNIE 9 9 [facility] V[facility] HIGH/URGE NT SEVERITY HOSPITAL CONNIE - 9 9 A R H OUTPATIEN T OFFICE 94121 OWEN SCHILLING 8 8 N, WILLIAM N, WILLIAM T JERO 60 MINUTES
--- OUTSIDE RECORDS SUMMARY | 2017-06-23 07:22 | External Medical Summary Rpt ---
Author Author , TRAVON Organization TRAVON Address Unknown Phone [email or web address] Care Team Providers Care Optomechanical Engineer Name Role Phone GARDENIA, GARDENIA Unavailable Unavailable DE LA CRUZ RONALD, DE LA CRUZ Unavailable Unavailable RONALD DE LA PAZ BESSON Unavailable Unavailable [facility] Unavailable Unavailable HOSPITAL, [facility] GEORGE CAR, GEORGE Unavailable Unavailable CAR Natasha ZUÑIGA MD Unavailable Unavailable PSC, Natasha ZUÑIGA MD PSC ROLAND, CAROL S, Unavailable [...] Unavailable Unavailable RHO ECHAVARRIA, ECHAVARRIA Unavailable Unavailable [facility] Unavailable Unavailable INC, [facility] Unavailable Unavailable HOSPITAL P, [facility], Unavailable Unavailable [facility], Unavailable Unavailable [facility] Unavailable Unavailable CENTER, [facility] RENO LESLIE, RENO LESLIE Unavailable Unavailable RENO LESLIE, RENO LESLIE Unavailable Unavailable IKRAMUDDIN, WILLIAM, Unavailable Unavailable IKRAMUDDIN, WILLIAM ROSSY STEFANIE, ROSSY Unavailable Unavailable STEFANIE LARIOS, STEPHANIE S, Unavailable Unavailable LARIOS, STEPHANIE S JUSTICE TON, JUSTICE Unavailable Unavailable [facility] KMS NURSE Unavailable Unavailable PRACTITIONER GR, KMSF NURSE PRACTITIONER GR TRACEY MAHAN, Unavailable Unavailable [facility] Unavailable [facility], [facility] Unavailable Unavailable [facility], [facility] KEYANNA LAURIE, KEYANNA LAURIE Unavailable Unavailable MIGUEL ANGEL, MIGUEL ANGEL Unavailable Unavailable MIGUEL ANGEL, MIGUEL ANGEL Unavailable Unavailable [facility] Unavailable Unavailable [facility], Unavailable Unavailable [facility], Unavailable Unavailable [facility] COATS ASHER, COATS ASHER Unavailable Unavailable COATS ASHER, COATS ASHER Unavailable Unavailable BALILLIE M, Unavailable Unavailable BALILLIE DELGADO M [place] Unavailable Unavailable PHARMACY, [facility] SAMANTA STANLEY MD Unavailable Unavailable CONSULTING SERV, SAMANTA STANLEY MD CONSULTING SERV [facility] Unavailable Unavailable EMS, [facility] Unavailable Unavailable EMS, [facility] CARMELLA JEA, CARMELLA Unavailable Unavailable JEA RICE YVO, RICE YVO Unavailable Unavailable SCALF MAU, SCALF MAU Unavailable Unavailable SCHULSTAD SALBADOR, Unavailable Unavailable [facility] SAL[facility] SCIFRES ANG, SCIFRES Unavailable Unavailable ANG SCIFRES ANG, SCIFRES Unavailable Unavailable ANG SOKAN BAB, SOKAN BAB Unavailable Unavailable [facility] Unavailable Unavailable [facility], [facility] KEANE, KEANE Unavailable Unavailable STEYN PIE, STEYN PIE Unavailable Unavailable STONE, STONE Unavailable Unavailable STONE YOUNG, STONE YOUNG Unavailable Unavailable SWINEY PAT, SWINEY Unavailable Unavailable PAT TAULBEE WILLIAM, TAULBEE Unavailable Unavailable WILLIAM MICHAEL III J, MICHAEL Unavailable Unavailable III J BLAKE JOHN, BLAKE Unavailable Unavailable JOHN BLAKE JOHN, BLAKE Unavailable Unavailable JOHN KELLIE TIA, KELLIE Unavailable Unavailable [facility] [place] [facility] MEGHAN CAO, Unavailable Unavailable MEGHAN CAO MARISELA MAT, MARISELA MAT Unavailable Unavailable Purpose Continuity of Care Document - 12-06-2007 through 2016 Problems Code Diagnosis DOS Provider Status Z0100 ENCOUNTER 04-10-2017 MIGUEL ANGEL EXAM EYES & VISION W/O ABNORMAL FIND R0789 OTHER CHEST 03-04-2017 [facility] P E785 HYPERLIPIDE 02-02-2017 [facility] LAURA PHYSICIANS UNSPECIFIED GROUP 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 GROUP I10 ESSENTIAL 02-02-2017 [facility] PRIMARY PHYSICIANS HYPERTENSIO GROUP N J209 ACUTE 01-29-2017 [place] [facility] UNSPECIFIED INC R21 RASH AND 01-29-2017 [facility] NONSPECIFIC INC SKIN ERUPTION Z720 TOBACCO USE 01-29-2017 [facility] INC Z74416 PAIN IN 01-28-2017 [facility] LEFT LEG [facility] EMS R0602 SHORTNESS 01-25-2017 [facility] [place] OF BREATH RADIOLOGY R079 CHEST PAIN 01-25-2017 [facility] UNSPECIFIED N EMERGENCY PHYS J0140 ACUTE 09-27-2016 [facility] PANSINUSITI N EMERGENCY S PHYS UNSPECIFIED J324 CHRONIC 09-27-2016 [facility] PANSINUSITI N EMERGENCY S PHYS R51 HEADACHE 09-27-2016 [facility] [place] RADIOLOGY L237 ALLERGIC 08-04-2016 [facility] CONTACT N EMERGENCY DERMATITIS PHYS D/T PLANTS EXCP FOOD M5440 LUMBAGO 08-03-2016 [place] UNSPECIFIED SIDE M545 LOW BACK 08-03-2016 [facility] PAIN PHYSICIANS GROUP B0089 OTHER 05-13-2016 [facility] HERPESVIRAL N EMERGENCY INFECTION PHYS R0781 PLEURODYNIA 01-10-2016 [facility] N EMERGENCY PHYSI M542 CERVICALGIA 12-24-2015 [facility] Z21237 MUSCLE 12-24-2015 [facility] OF [facility] BACK INC A80628 OTHER 12-24-2015 [facility] MUSCLE [facility] SPASM INC S94679W UNSPECIFIED 09-23-2015 [facility] SPRAIN N EMERGENCY LEFT FOOT PHYS INITIAL ENCOUNTER A46175I UNSPECIFIED 09-23-2015 [facility] [place] INJURY RADIOLOGY LEFT FOOT INITIAL ENCOUNTER T0544XO OTHER 09-23-2015 [facility] CONTACT N EMERGENCY WITH OTHER PHYS MAMMALS INITIAL ENCNTR R32657 PREGLAUCOMA 08-05-2015 SCIF[facility] ANG , UNSPECIFIED , BILATERAL 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 H524 PRESBYOPIA 08-05-2015 SCIF[facility] ANG A05314H PUNCT WND 07-16-2015 [facility] NO FB RT N EMERGENCY INDX FINGER PHYS NO DAMGE NAIL INT [id number] EXPOSURE TO 07-16-2015 [facility] OTHER N EMERGENCY SPECIFIED PHYS FACTORS INITIAL ENC 17534 DEHYDRATION 03-01-2015 [facility] 4779 ALLERGIC 03-01-2015 [facility] RHINITIS N EMERGENCY CAUSE PHYS UNSPECIFIED 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 V016 CONTACT 01-03-2015 [facility] WITH OR PHYSICIANS EXPOSURE TO GROUP VENEREAL DISEASES 2724 OTHER AND 11-28-2014 [facility] UNSPECIFIED PHYSICIANS GROUP HYPERLIPIDE LAURA 4019 UNSPECIFIED 11-28-2014 [facility] ESSENTIAL PHYSICIANS HYPERTENSIO GROUP N 31526 OTHER 11-28-2014 [facility] 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 USE [facility] V1749 FAMILY 08-04-2013 [facility]ISTORY OF [facility] OTHER HOSPITAL CARDIOVASCU LAR DISEASES V5869 LONG-TERM 08-04-2013 [facility] (CURRENT) [facility] USE OF HOSPITAL OTHER MEDICATIONS 88074 CALCU 12-09-2012 [facility]SE [facility] PRACTITIONE W/O MENTION R GR CHOLECYST/O BST 78584 CALCU 12-08-2012 [facility] W/OTH HOSPI CHOLECYST W/O MENTION OBST 79296 CHRONIC 12-08-2012 [place] [facility] CHOLECYSTIT SERV IS [facility] V6441 LAPAROSCOPI 12-08-2012 [place] [facility] C SURGICAL SERV PROC [facility] COVERTED OPEN PROC 5758 OTHER 10-28-2012 [facility] [place] SPECIFIED RADIOLOGY DISORDER OF GALLBLADDER 5680 PERITONEAL 10-10-2012 [facility] ADHESIONS ZARA COHN PSC 51829 CALCU 10-10-2012 [facility] GALLBLADD ZARA W/TEMO COHN PSC CHOLCYST W/O MENTION OBST V641 SURG/OTH 10-10-2012 [facility] PROC NOT ZARA HERNANDEZ MD [facility] BECAUSE CONTRAINDIC ATION 2720 PURE 09-28-2012 [facility] HYPERCHOLES ZARA SANTA MD PSC 31274 ABDOMINAL 09-28-2012 [facility] PAIN RIGHT ZARA UPPER [facility] QUADRANT 7873 FLATULENCE 09-21-2012 [facility] ERUCTATION ZARA AND R[place] COHN PSC PAIN 64355 ABDOMINAL 09-06-2012 JACK[facility]INE PAIN, [facility] EMS 69314 ABDOMINAL 09-06-2012 [facility] [place] PAIN OTHER RADIOLOGY SPECIFIED SITE 2721 PURE 05-18-2012 [facility] 92822 OSTEOARTHRO 05-18-2012 [facility] HEALTHCARE WHETHER CENTER GEN/LOC UNSPEC SITE 7242 LUMBAGO 05-18-2012 [facility] HEALTHCARE [place] 59588 SPASM OF 01-12-2012 [facility] MUSCLE HEALTHCARE CENTER 12310 OTHER 01-12-2012 [facility] ABNORMAL HEALTHCARE GLUCOSE CENTER 2722 MIXED 08-10-2011 SAMANTA STANLEY HYPERLIPIDE MD [facility] CONSULT[facility] SERV 28108 HYPERSOMNIA 08-10-2011 SAMANTA STANLEY MD UNSPECIFIED CONSULTING SERV 18402 SHORTNESS 08-10-2011 SAMANTA STANLEY OF BREATH CONSULTING SERV 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 79129 OTHER 08-02-2011 [facility] AND [facility] HOSPITAL RESPIRATORY ABNORMALITI ES V8532 BODY MASS 08-02-2011 [facility] INDEX COMMUNITY 32.0-32.9 HOSPITAL ADULT 14504 RECURRENT 07-28-2011 [facility] HYPERSOMNIA 67650 PRECORDIAL 07-28-2011 [facility] PAIN 7804 DIZZINESS 07-24-2011 [facility] JOHN AND GIDDINESS 7840 HEADACHE 07-24-2011 [facility] V0481 NEED 06-24-2011 [facility] PROPHYLACTI HEALTHCARE C CENTER VACCINATION &INOCULATIO N FLU 35268 OTHER 06-05-2011 [facility] DISEASES OF HEALTHCARE NASAL CENTER CAVITY AND SINUSES 490 BRONCHITIS 06-05-2011 [facility] SPECIFIED CENTER ACUTE OR CHRONIC 7862 COUGH 06-05-2011 [facility] 6929 CONTACT 01-15-2010 MIGUEL ANGEL [...] DORIAN DISEASES AMERIC BLOOD[employer]BLOOD HOLDING -FORMING ORGANS 55001 ATHEROSLERO 06-05-2009 [facility] FAMILY [facility] EXTREM W/INTERMIT CLAUDICAT 56058 ATHEROSLERO 06-05-2009 ALL FAMILY [facility] [facility] EXTREMITIES W/REST PAIN 7245 UNSPECIFIED 06-05-2009 ALL FAMILY BACKACHE HEALTH CARE 35422 ELEVATED 06-05-2009 [facility] PROST[facility] AMERIC SPECIFIC HOLDING ANTIGEN 81926 OPEN WOUND 09-21-2008 [facility] ROSAL[facility] WITHOUT CLINIC MENTION COMPLICATIO N 8820 OPEN WOUND 09-19-2008 CONNIE Cheung HAND NO R H FINGER ALONE W/O MENTION COMP 9140 HAND NO 09-19-2008 [facility] MEDICAL ALONE PARTNERS [employer] BURN W/O INF E9060 DOG BITE 09-19-2008 [facility] 4659 ACUTE URIS 05-16-2008 IKRAMUDDIN, OF WILLIAM UNSPECIFIED SITE Medications Na ND Rx Da Fi Fi Am Da Di Ph RX Ph St me C No te ll ll ou ys ag ar # ys at rm s nt no ma ic us Or Da si cy ia de te s n re d LI 68 08 09 30 30 00 HO Ac SI 00 -1 -1 .0 00 ME ti NO 10 5- 5- 00 06 TO ve MI 27 20 20 08 WN IL 10 17 17 75 8 30 PH 40 AR MA MG CY TA OF BL ET CY NT HI AN A NA 65 08 09 60 30 00 HO Ac MI 16 -1 -1 .0 00 ME ti OX 20 5- 5- 00 06 TO ve EN 19 20 20 08 WN 05 17 17 93 50 0 44 PH 0 AR MG MA CY TA BL OF ET CY NT HI AN A CY 69 08 09 90 30 00 HO Ac CL 09 -1 -1 .0 00 ME ti OB 70 5- 5- 00 06 TO ve EN 84 20 20 08 WN ZA 61 17 17 93 MI 5 45 PH IN AR E MA 10 CY MG OF TA CY BL NT ET HI AN A GA 68 08 09 [...] 08 WN ZA 61 17 17 93 MI 5 45 PH IN AR E MA 10 CY MG OF TA CY BL NT ET HI AN A NA 68 07 08 60 30 00 HO Ac MI 46 -1 -1 .0 00 ME ti [...] 10 8- 8- 00 06 TO ve MI 27 20 20 08 WN IL 10 [...] 10 0- 1- 00 06 TO ve MI 27 20 20 08 WN IL 10 [...] CY NT HI AN A NA 68 06 07 60 30 00 HO Ac MI 46 -2 -2 .0 00 ME ti [...] 08 WN ZA 61 17 17 93 MI 5 45 PH IN AR E MA 10 CY MG OF TA CY BL NT ET HI AN A GA 68 05 06 [...] 05 06 60 30 00 HO Ac MI 46 -2 -2 .0 00 ME ti [...] 08 WN ZA 61 17 17 75 MI 5 28 PH IN AR E MA [...] 10 3- 3- 00 06 TO ve MI 27 20 20 08 WN IL 10 17 17 75 8 30 PH 40 AR MA MG CY TA OF BL ET CY NT HI AN A AZ 59 05 06 6. 5 00 WA Ac IT 76 -1 -2 00 00 L- ti HR 23 9- 3- 0 07 MA ve OM 06 20 20 41 RT YC 00 17 17 00 IN 1 37 PH AR 25 MA 0 CY MG #4 TA 93 BL ET ME 59 05 06 21 5 00 WA Ac TH 74 -1 -2 .0 00 L- ti YL 60 9- 3- 00 07 MA ve MI 00 20 20 41 RT ED 10 17 17 00 NI 3 36 PH SO AR LO MA NE CY 4 #4 MG 93 DO SE PK GA 45 04 05 60 30 00 [...] 10 8- 9- 00 06 TO ve MI 27 20 20 07 WN IL 10 17 17 59 8 12 PH 40 AR MA MG CY TA OF BL ET CY NT HI AN A LI 68 03 04 30 30 00 HO Ac SI 00 -2 -2 .0 00 ME ti NO 10 1- 1- 06 TO ve MI 27 20 20 07 WN IL 10 [...] 50 1- 4- 00 06 TO ve MI 64 20 20 07 WN IL 01 [...] 50 3- 4- 00 06 TO ve MI 64 20 20 07 WN IL 01 17 17 59 0 12 PH 40 AR MA MG CY TA OF BL ET CY NT HI AN A GA 45 01 [...] TA NT BL HI ET AN A ME 00 01 02 20 5 00 HO Ac TO 09 -1 -1 .0 00 ME ti CL 32 6- 7- 00 06 TO ve OP 20 20 20 07 WN RA 30 17 17 95 PR 5 76 PH DE AR MA 10 [...] E NT HI AN A LI 00 12 01 30 30 00 HO Ac SI 18 -2 -2 .0 00 ME ti NO 50 6- 7- 00 06 TO ve MI 64 20 20 07 WN IL 01 [...] UL CY E NT HI AN A MI 37 09 10 3 30 30 HO [...] 2- 2- 00 TO 71 BL ve MI 10 20 20 WN 9 E IL 21 11 11 ER 0 PH IC 20 AR A MA B MG CY TA BL ET MI 37 09 09 3 30 30 HO [...] 3- 3- 00 TO 71 BL ve MI 10 20 20 WN 3 E IL [...] MA B H CY SY RU P KE 00 11 01 00 60 30 NE 16 IK Ac TO 37 -0 -1 .0 IG 53 RA ti MI 85 2- 4- 00 HB 45 MU [...] AR MG MA CY TA BL ET 50 11 01 00 30 30 NE 16 IK Ac 11 -0 -1 .0 IG 53 RA ti 10 2- 4- 00 HB 48 MU ve 30 20 20 OR DD 90 09 10 HO IN 1 OD SY PH ED AR MA CY 64 12 12 00 14 7 ME 75 IK Ac 37 -0 -1 .0 DZ 18 RA ti 60 1- 7- 00 ON 38 MU ve 54 20 20 E DD 40 09 09 PH IN 1 AR MA SY CY ED 00 06 11 00 15 3 ME 68 LE Ac 59 -0 -0 .0 DZ 93 SL ti 10 5- 5- 00 ON 84 IE ve 38 20 20 E 50 09 09 PH RO 5 AR BE MA RT CY K ME 68 09 10 00 30 15 ME 72 No Ac LO 38 -2 -0 .0 DZ 65 t ti XI 20 8 ON 31 Av ve CA 05 20 20 E ai M 10 09 09 PH la 15 5 AR bl MA e MG CY TA BL ET PE 00 06 06 00 28 7 ME 68 LE Ac NI 78 -0 -1 .0 DZ 93 SL ti CI 11 8 ON 85 IE ve LL 65 20 20 E IN 51 09 09 PH RO 0 AR BE VK MA RT CY K 50 0 MG TA BL ET 00 06 06 00 15 3 ME 58 LE Ac 59 -0 -1 .0 DZ 14 SL ti 10 8 ON 25 IE ve 38 20 20 [...] -2 .0 DZ 00 SL ti 10 ON 69 IE ve 38 20 20 [...] -0 .0 DZ 50 SL ti 10 3 ON 97 IE ve 38 20 20 E 50 09 09 PH RO 5 AR BE MA RT CY K 00 03 04 00 15 3 ME 66 LE Ac 59 -3 -0 .0 DZ 72 SL ti 10 0- 9- ON 29 IE ve 38 20 20 E 50 09 09 PH RO 5 AR BE MA RT CY K 00 01 02 00 15 3 ME 64 LE Ac 59 -2 -1 .0 DZ 77 SL ti 10 6- 2- 00 ON 46 IE ve 38 20 20 E 50 09 09 PH RO 5 AR BE MA RT CY K 00 01 02 00 15 3 ME 64 LE Ac 59 -2 -1 .0 DZ 83 SL ti 10 9- 2- 00 ON 77 IE ve 38 20 20 E 50 09 09 PH RO 5 AR BE MA RT CY K 00 12 01 00 15 3 ME [...] .0 DO 79 LD ti ZE 10 9- 5- WE 84 WE ve PA 24 20 20 LL 6 LL M 11 09 09 1 0 MI ES MG OF LY S TA PH BL AR ET M CE 68 01 01 00 15 5 MC 10 WA Ac PH 18 -0 -1 .0 DO 78 DN ti AL 00 7- 5 WE 50 ER ve EX 12 20 20 LL 1 KA IN 20 09 09 R 2 MI RA 50 OF HU 0 L MG PH AR CA M PS UL E 00 11 12 00 12 2 MC 10 TA Ac 59 -1 -0 .0 DO 63 CK ti 10 7- 4- WE 06 ET ve 50 20 20 LL 5 T 20 08 08 DE 5 MI NV OF ER D PH AR M [...] la 5 AR bl MA e CY AZ 59 09 09 00 6. 5 ME 60 No Ac IT 76 -0 -1 00 DZ 51 t ti HR 23 3- 1- 0 ON 06 Av ve OM 06 20 20 E ai YC 00 08 08 PH la IN 1 AR bl MA e 25 CY 0 MG TA BL ET LO 51 09 09 00 10 10 ME 60 No Ac RA 66 -0 -1 .0 DZ 51 t ti TA 00 3- 1- 00 ON 07 Av ve DI 52 20 20 E ai NE 60 08 08 PH la 1 AR bl 10 MA e CY MG TA BL ET PE 00 08 09 00 59 7 [...] 5 AR bl MA e CY 00 08 08 00 12 2 MC 10 No Ac 59 -0 -1 .0 DO 29 t ti 10 5- 4- 00 WE 94 Av ve 50 20 20 LL 4 ai 20 08 08 la 5 MI bl OF e PH AR M PE [...] CY 50 0 MG TA BL ET Immunization Name Date Rout CVX Reac Dose Comm Prov Is Faci e tion ent ider Refu lity Give sed n IIV3 10-1 141 TRIM No HORI 2-20 BLE ZON VACC 11 [facility] THCA SPLI RE T CENT VIRU ER S 0.5 ML DOSA GE IM USE Procedures Procedure DOS Code Location Performer Comment DETERMINA 71809 [facility] TION 7 REFRACTIV E STATE OPHTH 27224 [facility] 7 XM&EVAL COMPRE NEW PT 1/> VST CV STRS 01426 S[facility]AIDA DE LA PAZ TST 7 [facility] RX CONT P ECG W/O I&R CV STRS 49627 S[facility] QUIGLEY TST 7 [facility] XERS&/OR INC INC RX CONT ECG TRCG ONLY CV STRS 69114 SORAIDA DE LA PAZ TST 7 [facility] RX CONT P ECG I&R ONLY ECHO 12236 S[facility]IDA QUIGLEY TTHRC R-T 7 [facility] 2D INC INC W/WOM-MOD E COMPL SPEC&COLR D THERAPEUT 88352 [facility] QUIGLEY IC 7 [facility]OS[facility] PROPHYLAC INC INC TIC/DX INJECTION SUBQ/IM GROUND A0425 [facility] STATUTE EMS EMS MILE AMB A0427 [facility] SERVICE [address] [place] [address] EMERGENCY EMS EMS TRANSPORT LEVEL 1 RADIOLOGI 24673 [facility] [place] ECHAVARRIA C 7 RADIOLOGY [place]AT[place] [address] [facility] [place] LAKHWINDER HEAD/BRAI 7 RADIOLOGY N W/[place] [address] [facility] [place] [facility] MAXILLOFA 7 RADIOLOGY CIAL W/O CONTRAST MATERIAL RADEX 94447 [facility] SPINE 6 MEDICAL SOPHY LUMBOSACR IMAGING AL ASS MINIMUM 4 VIEWS RADEX 64499 [facility] [place] GEORGE RIBS UNI 6 RADIOLOGY CAR W/POSTERO ANT CH MINIMUM 3 VIEWS RADEX 07616 [facility] SPINE 6 MEDICAL MEDICAL CERVICAL IMAGING IMAGING 4 OR 5 ASS ASS VIEWS RADEX 66710 [place] BEINE[facility] SPINE 6 MEDICAL LUMBOSACR IMAGING AL ASS MINIMUM 4 VIEWS UNCLASSIF J3490 [facility] QUIGLEY IED DRUGS 6 MEM HOSP MEM HOSP INC INC RADEX 71433 [facility] [place] BARRY FOOT 6 RADIOLOGY RHO COMPLETE MINIMUM 3 VIEWS OPHTH 84243 SCIFRES SCIFRES MEDICAL 5 ANG ANG XM&EVAL COMPRE NEW PT 1/> VST BASIC 03643 [facility] METABOLIC 3 [facility] CALCIUM TOTAL RADIOLOGI 93522 B[facility]Y BARRY C 3 RHO RHO EXAMINATI ON CHEST SINGLE VIEW FRONTAL ECG 32010 SHADIA RENO LESLIE ROUTINE 3 ECG W/LEAST 12 LDS I&R ONLY COLLECTIO 12725 [facility] N VENOUS 3 [facility] [place] [address] [facility] [place] LIPASE 3 [facility] ECG 46378 [facility] ROUTINE 3 [facility] W/LEAST 12 LDS TRCG ONLY W/O I&[place] [address] [facility] TROPONIN 3 [facility] KEITH BLOOD 47898 [facility] COUNT 3 [facility] AUTO&AUTO DIFRNTL WBC HOSPITAL 34433 KMS[facility] RICE YVO DISCHARGE 3 NURSE DAY PRACTITIO MANAGEMEN NER GR T 30 MIN/< ANES 53144 [place] STEYN PIE INTRAPERI 3 MEDICAL TONEAL SERV UPPER FOUNDATIO ABDOMEN W/LAPS NOS CHOLECYST 95416 [place] KELLIE ECTOMY 3 MEDICAL TIA SERV FOUNDATIO LEVEL III 95670 [facility] LAURIE SURG 3 Y OF PATHOLOGY [place] [facility] GROSS&NICOLE ROSCOPIC EXAM MRI 70001 [place] ABDOMEN 3 [facility] W/O [facility] HOSPITAL CONTRAST MATERIAL ECG [address] [facility] MICHAEL ROUTINE 3 CHARLIE III J ECG CARDIOLOG W/LEAST Y CLINIC 12 LDS I&R ONLY LAPAROSCO 45756 [facility] MORROW PY SURG 3 ZARA ZUÑIGA CHOLECYST PSC PSC ECTOMY ANES 10690 [place] BENITA INTRAPERI 3 ANESTHESI NICOLE TONEAL A GROUP UPPER PS ABDOM[place] W/[place] [address] [facility] [place] MARISELA MAT ABDOMINAL 3 RADIOLOGY REAL TIME W/IMAGE LIMITED GROUND A0425 [facility] MILEAGE 2 [facility] STATUTE EMS EMS MILE RADIOLOGI 51415 [facility] [place] SCALF MAU C EXAM 2 RADIOLOGY CHEST 2 VIEWS FRONTAL&[place] [address] [facility] [place] KOSTELIC ABDOMEN & 2 RADIOLOGY NEGRITO PELVIS W/O CONTRAST MATERIAL AMB A0427 [facility] SERVICE 2 [facility] EMERGENCY EMS EMS TRANSPORT LEVEL [address] [place] [address] LAB D[facility] LAB DORIAN TRIIODOTH 2 AMERIC AMERIC YRONINE HOLDING HOLDING T3 [place] [address] [place] [address] [facility] LAB DORIAN FREE 2 AMERIC AMERIC [place] [address] [facility] D[facility] THYROID 2 AMERIC AMERIC STIMULATI HOLDING HOLDING NG HORMONE TSH COMPREHEN 45798 [facility] DORIAN SIVE 2 AMERIC AMERIC METABOLIC HOLDING HOLDING PANEL HEMOGLOBI 76469 [facility] LAB DORIAN N 2 AMERIC AMERIC GLYCOSYLA HOLDING HOLDING ALEXIS A1C LIPID 81907 [facility] DORIAN PANEL 2 AMERIC AMERIC HOLDING HOLDING COMPREHEN 51682 [facility] LAB DORIAN SIVE 2 AMERIC AMERIC [place]AB[place] [address] LAB DORIAN LAB DORIAN THYROID 2 AMERIC AMERIC STIMULATI HOLDING HOLDING NG HORMONE TSH POLYSOM 79584 [facility] STANLEY SAMANTA 6/>YRS 1 SLEEP 4/> ADDL ADOLFO ATTND POLYSOM 50736 [facility] 6/>YRS 1 COMMUNITY COMMUNITY SLEEP 4/> HOSPITAL HOSPITAL ADDL ADOLFO ATTND ECHO 34871 [facility] TTHRC R-T 1 2D W/WOM-MOD E COMPL SPEC&COLR D DUP-SCAN 80712 [facility] ARTL EDMOND 1 ABDL/PEL/ SCROT&/RP R ORGN COM CATECHOLA 98922 KENDRA GARDNER MINES 1 [facility] ALEXIS METANEPHR 72652 KENDRA AVILAON AAKASH 1 [facility] METANEPHR 10597 KENDRA AVILAON AAKASH 1 [facility] [place] [address] KENDRA GOODWINREAGANLISBETH THYROID 1 [facility] TSH COLLECTIO 91163 KENDRA MARGARITAON N VENOUS 1 [facility] VENIPUNCT URE COLLECTIO 76377 KENDRA GARDNER N VENOUS 1 [facility] VENIPUNCT URE CREATINE 23330 MARGARITALISBETH MARGARITALISBETH KINASE 1 [facility] URNLS DIP 15202 MARGARITALISBETH MARGARITAON 1 [facility] STICK/TAB HOSPITAL HOSPITAL LET REAGENT AUTO MICROSCOP Y THER 07663 MARGARITALISBETH MARGARITALISBETH PROPH/DX 1 [facility] HOSPITAL PUSH SINGLE/1S T SBST/DRUG BASIC 47579 KENDRA MARGARITALISBETH METABOLIC 1 [facility] [address] KENDRA GOODWINREAGANLISBETH HEAD/BRAI 1 [facility] N W/O HOSPITAL HOSPITAL CONTRAST MATERIAL ECG 57756 KENDRA AVILAON ROUTINE 1 [facility] W/LEAST 12 LDS TRCG ONLY W/O I&R THERAPEUT 67583 BUDDYDEBORAH MARGARITALISBETH IC 1 [facility] INJECTION [facility] IV PUSH EACH NEW DRUG ECG 38734 MIGUEL ANGEL CRUZ ROUTINE 1 EMERGENCY ECG SERVICES W/LEAST 12 LDS I&R ONLY BLOOD 65332 BUDDYDEBORAH MARGARITAON COUNT 1 [facility] AUTO&AUTO DIFRNTL WBC CREATINE 19250 MARGARITALISBETH MARGARITALISBETH KINASE MB 1 [facility] [place] [address] [facility] TROPONIN 1 [facility] KEITH CRITICAL 92756 MIGUEL ANGEL HAN BAB CARE 1 EMERGENCY ILL/INJUR SERVICES ED PATIENT INIT 30-74 MIN ECG 12761 ROSSY BLAIR ROUTINE 1 STEFANIE STEFANIE ECG W/LEAST 12 LDS I&R ONLY CRITICAL 61167 [facility]IR CARE 1 STEFANIE STEFANIE ILL/INJUR ED PATIENT INIT 30-74 MIN IIV3 21194 HORIZON BLAKE VACCINE 1 [facility] VIRUS 0.5 ML DOSAGE IM USE COMPREHEN 97280 [facility] SIVE 1 [employer] PANEL LIPID 18955 [facility] PANEL 1 [facility] [employer] [facility] [facility] BLOOD 52970 [facility] COUNT 1 [employer] COMPLETE [facility] [facility] AUTO&AUTO DIFRNTL WBC NONINVASI 37724 [facility]IZON BLAKE VE 1 [facility] OXIMETRY SINGLE DETER THERAPEUT 90459 [facility] IC 0 [facility] TIC/DX INJECTION SUBQ/IM APPL 24883 [facility] 9 FAMILY STEPHANIE S 1/> [facility] IONTOPHOR ESIS EA 15 MIN LIPID 57775 [facility] PANEL 9 [employer] THYROID 93896 [facility] HORM 9 [employer] UPTK/THYR [employer]ING HOLDING OID HORMONE BINDING RATIO NON-INVAS 30585 [facility] STEPHANIE S PHYSIOLOG HEALTH IC STD CARE EXTREMITY ART 2 LEVEL APPL 32401 [facility], MODALITY 9 FAMILY STEPHANIE S 1/> [facility] [place] [address] [facility] D[facility] PROSTATE 9 AMERIC AMERIC SPECIFIC HOLDING HOLDING ANTIGEN TOTAL BILIRUBIN [id number] [facility] DIRECT 9 [employer] AMER[employer] HOLDING HOLDING ECG 46662 [facility] 9 FAMILY STEPHANIE S ECG HEALTH W/LEAST CARE 12 LDS W/I&R GENERAL 91652 [facility] HEALTH 9 AMERIC AMERIC PANEL HOLDING HOLDING BIOMPEDAN 42287 [facility] 9 FAMILY BROWN S D HEALTH PHYSIOLOG CARE IC CV ANALYSIS BRNCDILAT 71509 [facility]SP[facility] 9 FAMILY STEPHANIE Joyce SPMTRY HEALTH PRE&POST- CARE BRNCDILAT ADMN VISUAL 87237 ALISSA LARIOS FIELD XM 9 FAMILY STEPHANIE Joyce UNI/BI HEALTH W/INTER[place] [address] [facility] THYROXINE 9 AMERIC [place] [address] [facility] TRIIODOTH 9 AMERIC AMERIC YRONINE HOLDING HOLDING T3 TOTAL TT3 Encounters Encounter Start End Date Code Location Performer Type Date [facility] 7 [facility] OUTPATIEN INC T [facility] 7 7 [facility] OUTPATIEN INC T OFFICE 48541 [facility] STONE OUTPATIEN 7 7 PHYSICIAN T VISIT S GROUP 25 MINUTES OFFICE 18294 [facility] 7 7 [facility] T VISIT INC 10 MINUTES [facility] 7 [facility] OUTPATIEN INC T EMERGENCY 59394 [facility] PRITESH 7 7 [facility] DEPARTMEN EMERGENCY T VISIT PHYS HIGH/URGE NT SEVERITY EMERGENCY 17703 [facility] II DEPT 7 7 [facility] VISIT EMERGENCY HIGH PHYS SEVERITY& THREAT FUNCJ EMERGENCY 93729 [facility] SWINEY 6 6 [facility] PAT DEPARTMEN EMERGENCY T VISIT PHYS MODERATE SEVERITY OFFICE 30067 [facility] STONE YOUNG OUTPATIEN 6 6 PHYSICIAN T VISIT S GROUP 15 MINUTES EMERGENCY 10143 [facility] CARMELLA 6 6 [facility] CYNTHIAA DEPARTMEN EMERGENCY T VISIT PHYS MODERATE SEVERITY EMERGENCY 67411 [facility] DE [facility] CR[facility] 6 6 [facility] RONALD DEPARTMEN EMERGENCY T VISIT PHYSI MODERATE SEVERITY EMERGENCY 58994 [facility] 6 6 [facility] DEPARTMEN INC T VISIT LIMITED/M INOR PROB EMERGENCY 66948 STALIN PETERSER LESLIE 6 6 PHYSICIAN DEPARTMEN S, PLLC T VISIT MODERATE SEVERITY [facility] 95535 [facility] OUTPATI[facility] 6 6 PHYSICIAN NICOLE T VISIT S GROUP 15 MINUTES EMERGENCY 50704 [facility] RYAN 6 6 [facility] JENNIFER DEPARTMEN EMERGENCY T VISIT PHYS HIGH/URGE NT SEVERITY EMERGENCY 94888 [facility] SOCATALINAN BAB 5 5 [facility] DEPARTMEN EMERGENCY T VISIT PHYS MODERATE SEVERITY EMERGENCY 38523 [facility] 5 5 [facility] RONALD DEPARTMEN EMERGENCY T VISIT PHYS MODERATE SEVERITY OFFICE 93855 [facility] OUTPATIEN 5 5 PHYSICIAN T VISIT S GROUP 15 MINUTES OFFICE 20127 [facility] PHYSICIAN NICOLE T NEW 30 S GROUP MINUTES OFFICE 33252 PAULY COATS [facility] 4 4 T NEW 30 MINUTES [facility] - 3 3 [facility] T EMERGENCY 11812 [facility]PT 3 3 [facility] HIGH SEVERITY& THREAT [facility] [address] 3 [facility] T OFFICE 81117 [facility] 3 3 MEDICAL TIA T NEW 45 SERV MINUTES FOUNDATIO OFFICE 40582 Natasha ZUÑIGA OUTPATIEN 3 3 ZARA SIU T VISIT [facility] 25 MINUTES [facility] 3 3 [facility] T OFFICE 16456 Natasha ZUÑIGA CONSULTAT 3 3 ZARA ROBLERO MD [facility] NEW/ESTAB PATIENT 60 MIN EMERGENCY 96755 MIGUEL ANGEL BIRCH II DEPT 2 2 EMERGENCY THO VISIT SERVICES HIGH SEVERITY& THREAT [facility] OFFICE 29613 [facility] 2 2 [facility] 15 MINUTES OFFICE 34359 [facility] JUSTICE OUTPATIEN 2 2 [facility] T[facility] 15 MINUTES OFFICE 74272 [facility] TAULBEE OUTPATIEN 2 2 [facility] 10 MINUTES OFFICE 38157 [facility] TAULBEE OUTPATIEN 2 2 [facility] 15 MINUTES OFFICE 65968 [facility] STANLEY OUTPATIEN 1 1 MD T VISIT CONSULTIN 15 G SERV MINUTES [facility] - 1 1 [facility] - 1 1 [facility] OFFICE 53308 STANLEY SAMANTA ST[facility]A OUTPATIEN 1 1 T VIS[facility] 15 [facility]ES [facility] 1 [facility] T OFFICE 91004 BLAKE BLAKE OUTPATIEN 1 1 JOHN JOHN T VISIT 15 MINUTES OFFICE 00189 STANLEY SAMANTA STANLEY SAMANTA OUTPATIEN 1 1 T NEW 60 MINUTES EMERGENCY 67893 [facility] 1 1 [facility] T VISIT HIGH/URGE NT [facility]VERITY [facility] 1 1 [facility] T OFFICE 11892 BLAKE BLAKE OUTPATIEN 1 1 JOHN JOHN T VISIT 15 MINUTES OFFICE 38921 [facility] OUTPATIEN 1 1 [facility] VIS[facility] CENTER 15 MINUTES OFFICE 90926 [facility] OUTPATIEN 1 1 [facility] T VISIT 5 E CENTER MINUTES OFFICE 01222 [facility] OUTPATIEN 1 1 [facility] VISIT E CENTER 15 MINUTES OFFICE 54979 [facility] OUTPATIEN 1 1 [facility] T NEW 30 E CENTER MINUTES EMERGENCY 30837 MIGUEL ANGEL RENO LESLIE 0 0 EMERGENCY DEPARTMEN SERVICES T VISIT MODERATE SEVERITY EMERGENCY 79862 MIGUEL ANGEL BA, 0 0 EMERGENCY [facility] DEPARTMEN SERVICES T VISIT HIGH/URGE ASSOCIATE NT S SEVERITY [facility] 0 0 [facility] T OFFICE 96611 IKRAMUDDI IKRAMUDDI OUTPATIEN 9 9 N, WILLIAM N, WILLIAM T VISIT 40 MINUTES OFFICE 18329 IKR[facility]DI IKRAMUDDI OUTPATIEN 9 9 N, WILLIAM N, WILLIAM T VISIT 40 MINUTES OFFICE 22814 [facility] LARIOS, OUTPATIEN 9 9 FAMILY STEPHANIE S T NEW 45 HEALTH MINUTES CARE OFFICE 50216 [facility] OUTPATIEN 9 9 ROSALES CAROL S T NEW 20 CLINIC MINUTES EMERGENCY 43514 [facility] 9 9 MEDICAL , [facility] [employer] T [facility]IT [facility] MODERATE SEVERITY EMERGENCY 55579 [facility] 9 9 A R H DEPARTMEN T VISIT HIGH/URGE NT SEVERITY HOSPITAL [facility] - 9 9 A R H OUTPATIEN T OFFICE 26592 IKRAMUDDI IKRAMUDDI OUTPATIEN 8 8 N, WILLIAM N, WILLIAM T NEW 60 MINUTES
--- OUTSIDE RECORDS SUMMARY | 2017-06-23 07:22 | External Medical Summary Rpt ---
Author Author , TRAVON Organization TRAVON Address Unknown Phone [email or web address] Care Team Providers Care Rand Cementer Name Role Phone GARDENIA, GARDENIA Unavailable Unavailable DE LA CRUZ RONALD, DE LA CRUZ Unavailable Unavailable RONALD DE LA PAZ BESSON Unavailable Unavailable [facility] Unavailable Unavailable HOSPITAL, [facility] GEORGE CAR, GEORGE Unavailable Unavailable [...] Unavailable Unavailable RHO ECHAVARRIA, ECHAVARRIA Unavailable Unavailable [facility] Unavailable Unavailable INC, [facility] Unavailable Unavailable [facility]PITAL P, [facility], [facility]available Unavailable [facility], Unavailable Unavailable [facility] Unavailable Unavailable CENTER, [facility] RENO LESLIE, RENO LESLIE Unavailable Unavailable RENO LESLIE, RENO LESLIE Unavailable Unavailable IKRAMUDDIN, WILLIAM, Unavailable Unavailable IKRAMUDDIN, WILLIAM ROSSY STEFANIE, ROSSY Unavailable Unavailable STEFANIE LARIOS, STEPHANIE S, Unavailable Unavailable LARIOS, STEPHANIE S JUSTICE TON, JUSTICE Unavailable Unavailable [facility] NURSE Unavailable Unavailable [...] BALILLIE DELGADO M [place] Unavailable Unavailable PHARMACY, [facility] SAMANTA STANLEY MD Unavailable Unavailable CONSULTING SERV, SAMANTA STANLEY MD CONSULTING SERV [facility] Unavailable Unavailable EMS, [facility] Unavailable Unavailable EMS, [facility] CARMELLA JEA, CARMELLA Unavailable Unavailable JEA RICE YVO, RICE YVO Unavailable Unavailable SCALF MAU, SCALF MAU Unavailable Unavailable [facility] SALBADOR, Unavailable Unavailable [facility] SCIFRES ANG, SCIFRES Unavailable Unavailable ANG SCIFRES ANG, SCIFRES Unavailable Unavailable ANG SOKAN BAB, SOKAN BAB Unavailable Unavailable [facility] Un[facility], [facility] KEANE, KEANE Unavailable Unavailable STEYN PIE, STEYN PIE Unavailable Unavailable STONE, STONE Unavailable Unavailable STONE YOUNG, STONE YOUNG Unavailable Unavailable SWINEY PAT, SWINEY Unavailable Unavailable PAT TAULBEE WILLIAM, TAULBEE Unavailable Unavailable WILLIAM MICHAEL III J, MICHAEL Unavailable Unavailable III J BLAKE JOHN, BLAKE Unavailable Unavailable JOHN BLAKE JOHN, BLAKE Unavailable Unavailable JOHN KELLIE TIA, KELLIE Unavailable Unavailable TIA [facility] MEGHAN CAO, Unavailable Unavailable MEGHAN CAO MARISELA MAT, MARISELA MAT Unavailable Unavailable Purpose Continuity of Care Document - 12-06-2007 through 2016 Problems Code Diagnosis DOS Provider Status Z0100 ENCOUNTER 04-10-2017 MIGUEL ANGEL EXAM EYES & VISION W/O ABNORMAL FIND R0789 OTHER CHEST 03-04-2017 [facility] P E785 HYPERLIPIDE 02-02-2017 [facility] LAURA PHYSICIANS UNSPECIFIED GROUP 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 I10 ESSENTIAL 02-02-2017 [facility] PRIMARY PHYSICIANS HYPERTENSIO GROUP N J209 ACUTE 01-29-2017 [place] [facility] UNSPECIFIED INC R21 RASH AND 01-29-2017 [facility] NONSPECIFIC INC SKIN ERUPTION Z720 TOBACCO USE 01-29-2017 [facility] INC L07457 PAIN IN 01-28-2017 [place] LEFT LEG [facility] EMS R0602 SHORTNESS 01-25-2017 [facility] [place] OF BREATH RADIOLOGY R079 CHEST PAIN 01-25-2017 [facility] UNSPECIFIED N EMERGENCY PHYS J0140 ACUTE 09-27-2016 [facility] PANSINUSITI N EMERGENCY S PHYS UNSPECIFIED J324 CHRONIC 09-27-2016 [facility] PANSINUSITI N EMERGENCY S PHYS R51 HEADACHE 09-27-2016 [facility] [place] RADIOLOGY L237 ALLERGIC 08-04-2016 [facility] CONTACT N EMERGENCY DERMATITIS PHYS D/T PLANTS EXCP FOOD M5440 LUMBAGO 08-03-2016 [place] [facility] ASS UNSPECIFIED SIDE M545 LOW BACK 08-03-2016 [facility] PAIN PHYSICIANS GROUP B0089 OTHER 05-13-2016 [facility] HERPESVIRAL N EMERGENCY INFECTION PHYS R0781 PLEURODYNIA 01-10-2016 [facility] N EMERGENCY PHYSI M542 CERVICALGIA 12-24-2015 [facility] B95580 MUSCLE 12-24-2015 [facility] BACK INC B58562 OTHER 12-24-2015 [facility] SPASM INC A64017L UNSPECIFIED 09-23-2015 [facility] SPRAIN N EMERGENCY LEFT FOOT PHYS INITIAL ENCOUNTER O72657L UNSPECIFIED 09-23-2015 [facility] [place] INJURY RADIOLOGY LEFT FOOT INITIAL ENCOUNTER S4580MH OTHER 09-23-2015 [facility] CONTACT N EMERGENCY WITH OTHER PHYS MAMMALS INITIAL ENCNTR T99241 PREGLAUCOMA 08-05-2015 SCIFRES ANG , UNSPECIFIED , BILATERAL 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 H524 PRESBYOPIA 08-05-2015 [facility] ANG A64778L PUNCT WND 07-16-2015 [facility] NO FB RT N EMERGENCY INDX FINGER PHYS NO DAMGE NAIL INT [id number] EXPOSURE TO 07-16-2015 [facility] OTHER N EMERGENCY SPECIFIED PHYS FACTORS INITIAL ENC 42383 DEHYDRATION 03-01-2015 [facility] 4779 ALLERGIC 03-01-2015 [facility] RHINITIS N EMERGENCY CAUSE PHYS UNSPECIFIED 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 PAIN [facility] V1582 PERS HX 08-04-2013 [facility] V1749 FAMILY 08-04-2013 [place] HISTORY OF [facility] OTHER HOSPITAL CARDIOVASCU LAR DISEASES V5869 LONG-TERM 08-04-2013 [place] (CURRENT) [facility] USE OF HOSPITAL OTHER MEDICATIONS 38420 CALCU 12-09-2012 [facility] PRACTITION[facility] W/O MENTION R GR CHOLECYST/O BST 12566 CALCU 12-08-2012 [facility] W/OTH HOSPI CHOLECYST W/O MENTION OBST 86375 CHRONIC 12-08-2012 [facility] CHOLECYSTIT SERV IS FOUNDATIO V6441 LAPAROSCOPI 12-08-2012 [facility] C SURGICAL SERV PROC FOUNDATIO COVERTED OPEN PROC 5758 OTHER 10-28-2012 [facility] [place] SPECIFIED RADIOLOGY DISORDER OF GALLBLADDER 5680 PERITONEAL 10-10-2012 [facility] ADHESIONS ZARA COHN PSC 34413 CALCU 10-10-2012 [facility] GALLBLADD ZARA W/TEMO COHN PSC CHOLCYST W/O MENTION OBST V641 SURG/OTH 10-10-2012 [facility] PROC NOT ZARA HERNANDEZ MD [facility] BECAUSE CONTRAINDIC ATION 2720 PURE 09-28-2012 [facility] HYPERCHOLES ZARA SANTA MD PSC 57667 ABDOMINAL 09-28-2012 [facility] PAIN RIGHT ZARA UPPER [facility] QUADRANT 7873 FLATULENCE 09-21-2012 [facility] ERUCTATION ZARA AND R[place] COHN PSC PAIN 33445 ABDOMINAL 09-06-2012 [place] PAIN, [facility] 80788 ABDOMINAL 09-06-2012 [facility] [place] PAIN OTHER RADIOLOGY SPECIFIED SITE 2721 PURE 05-18-2012 [facility] HEALTHCARE IDEMIA CENTER 65154 OSTEOARTHRO 05-18-2012 [facility] HEALTHCARE WHETHER CENTER GEN/LOC UNSPEC SITE 7242 LUMBAGO 05-18-2012 [facility] HEALTHCARE [place] 52611 SPASM OF 01-12-2012 [facility] MUSCLE HEALTHCARE CENTER 38538 OTHER 01-12-2012 [facility] ABNORMAL HEALTHCARE GLUCOSE CENTER 2722 MIXED 08-10-2011 SAMANTA STANLEY HYPERLIPIDE MD SANCHEZ CONSULTING SERV 47658 HYPERSOMNIA 08-10-2011 SAMANTA STANLEY MD UNSPECIFIED CONSULTING SERV 78466 SHORTNESS 08-10-2011 SAMANTA STANLEY OF BREATH CONSULTING SERV 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 44265 OTHER 08-02-2011 [place] DYSPNEA AND [facility] RESPIRATORY ABNORMALITI ES V8532 BODY MASS 08-02-2011 [place] INDEX COMMUNITY 32.0-32.9 HOSPITAL ADULT 51219 RECURRENT 07-28-2011 [facility] SAMANTA HYPERSOMNIA 77586 PRECORDIAL 07-28-2011 [facility] SAMANTA PAIN 7804 DIZZINESS 07-24-2011 BLA[facility] JOHN AND GIDDINESS 7840 HEADACHE 07-24-2011 [facility] JOHN V0481 NEED 06-24-2011 [facility] PROPHYLACTI HEALTHCARE C CENTER VACCINATION &INOCULATIO N FLU 83665 OTHER 06-05-2011 [facility] DISEASES OF HEALTHCARE NASAL CENTER CAVITY AND SINUSES 490 BRONCHITIS 06-05-2011 [facility] SPECIFIED CENTER ACUTE OR CHRONIC 7862 COUGH 06-05-2011 [facility] 6929 CONTACT 01-15-2010 MIGUEL ANGEL [...] DORIAN DISEASES AMERIC BLOOD&BLOOD HOLDING -FORMING ORGANS 78567 ATHEROSLERO 06-05-2009 ALL FAMILY [facility] EXTREM W/INTERMIT CLAUDICAT 40618 ATHEROSLERO 06-05-2009 [facility] [place] [facility] EXTREMITIES W/REST PAIN 7245 UNSPECIFIED 06-05-2009 ALL FAMILY BACKACHE HEALTH CARE 65628 ELEVATED 06-05-2009 LAB [facility] PROSTATE AMERIC SPECIFIC HOLDING ANTIGEN 69472 OPEN WOUND 09-21-2008 [facility] ROSALES WITHOUT CLINIC MENTION COMPLICATIO N 8820 OPEN WOUND 09-19-2008 CONNIE Cheung HAND NO R H FINGER ALONE W/O MENTION COMP 9140 HAND NO 09-19-2008 [facility] MEDICAL ALONE PARTNERS [employer] BURN W/O INF E9060 DOG BITE 09-19-2008 [facility] 4659 ACUTE URIS 05-16-2008 IKRAMUDDIN, OF WILLIAM [...] 10 5- 5- 00 06 TO ve MN 27 20 20 08 WN IL 10 17 17 75 8 30 PH 40 AR MA MG CY TA OF BL ET CY NT HI AN A NA 65 08 09 60 30 00 HO Ac MN 16 -1 -1 .0 00 ME ti [...] 08 WN ZA 61 17 17 93 MN 5 45 PH IN AR E MA [...] 08 WN ZA 61 17 17 93 MN 5 45 PH IN AR E MA 10 CY MG OF TA CY BL NT ET HI AN A NA 68 07 08 60 30 00 HO Ac MN 46 -1 -1 .0 00 ME ti [...] 10 8- 8- 00 06 TO ve MN 27 20 20 08 WN IL 10 [...] 10 0- 1- 00 06 TO ve MN 27 20 20 08 WN IL 10 [...] 06 07 60 30 00 HO Ac MN 46 -2 -2 .0 00 ME ti [...] 08 WN ZA 61 17 17 93 MN 5 45 PH IN AR E MA [...] 05 06 60 30 00 HO Ac MN 46 -2 -2 .0 00 ME ti [...] 08 WN ZA 61 17 17 75 MN 5 28 PH IN AR E MA [...] 10 3- 3- 00 06 TO ve MN 27 20 20 08 WN IL 10 [...] 60 9- 3- 00 07 MA ve MN 00 20 20 41 RT ED 10 [...] 10 8- 9- 00 06 TO ve MN 27 20 20 07 WN IL 10 17 17 59 8 12 PH 40 AR MA MG CY TA OF BL ET CY NT HI AN A LI 68 03 04 30 30 00 HO Ac SI 00 -2 -2 .0 00 ME ti NO 10 1- 1- 06 TO ve MN 27 20 20 07 WN IL 10 [...] 50 1- 4- 00 06 TO ve MN 64 20 20 07 WN IL 01 [...] 50 3- 4- 00 06 TO ve MN 64 20 20 07 WN IL 01 [...] 07 WN RA [address] 5 76 PH DE AR MA 10 [...] 50 6- 7- 00 06 TO ve MN 64 20 20 07 WN IL 01 [...] UL CY E NT HI AN A MN 37 09 10 3 30 30 HO [...] 2- 2- 00 TO 71 BL ve MN 10 20 20 WN 9 E IL 21 11 11 ER 0 PH IC 20 AR A MA B MG CY TA BL ET MN 37 09 09 3 30 30 HO [...] 3- 3- 00 TO 71 BL ve MN 10 20 20 WN 3 E IL [...] -0 -1 .0 IG 53 RA ti MN 85 2- 4- 00 HB 45 MU [...] LL M 11 09 09 1 0 MN ES MG OF LY S TA PH BL AR ET M CE 68 01 01 00 15 5 MC 10 WA Ac PH 18 -0 -1 .0 DO 78 DN ti AL 00 7- 5 WE 50 ER ve EX 12 20 20 LL 1 KA IN 20 09 09 R 2 MN RA 50 OF HU 0 L MG PH AR CA M PS UL E 00 11 12 00 12 2 MC 10 TA Ac 59 -1 -0 .0 DO 63 CK ti 10 7- 4- WE 06 ET ve 50 20 20 LL 5 T 20 08 08 DE 5 MN NV OF ER D PH AR M [...] 4 ai 20 08 08 la 5 MN bl OF e PH AR M PE [...] Procedure DOS Code Location Performer Comment DETERMINA 67213 [facility] TION [address] [facility] [facility] O[facility]TH [address] [facility] 7 XM&EVAL COMPRE NEW PT 1/> VST CV STRS 42901 SORAIDA DE LA PAZ TST 7 [facility] RX CONT P ECG W/O I&R CV STRS 92023 S[facility]IDA QUIGLEY TST 7 [facility] XERS&/OR INC INC RX CONT ECG TRCG ONLY CV STRS 28658 SORAIDA DE LA PAZ TST 7 [facility] RX CONT P ECG I&R ONLY ECHO 23757 SORAIDA QUIGLEY TTHRC R-T 7 [facility] 2D INC INC W/WOM-MOD E COMPL SPEC&COLR D THERAPEUT 85067 S[facility]IDA QUIGLEY IC 7 [facility] PROPHYLAC INC INC TIC/DX INJECTION SUBQ/IM GROUND A0425 [facility] EMS MILE AMB A[address] [facility] SERVICE [address] [place] [address] EMERGENCY EMS EMS TRANSPORT LEVEL 1 RADIOLOGI 29771 [facility] [place] ECHAVARRIA C 7 RADIOLOGY [place]AT[place] [address] [facility] [place] LAKHWINDER HEAD/BRAI 7 RADIOLOGY N W/[place] [address] [facility] [place] LAKHWIND[place] MAXILLOFA 7 RADIOLOGY CIAL W/O CONTRAST MATERIAL RADEX 79728 [facility] SPINE 6 MEDICAL SOPHY LUMBOSACR IMAGING AL ASS MINIMUM 4 VIEWS RADEX 58994 [facility] [place] GEORGE RIBS UNI 6 RADIOLOGY CAR W/POSTERO ANT CH MINIMUM 3 VIEWS RADEX 25188 [facility] SPINE 6 MEDICAL MEDICAL CERVICAL IMAGING IMAGING 4 OR 5 ASS ASS VIEWS RADEX 62264 [place] BEINEKE SPINE 6 MEDICAL LUMBOSACR IMAGING AL ASS MINIMUM 4 VIEWS UNCLASSIF J3490 [facility] QUIGLEY IED DRUGS 6 MEM HOSP MEM HOSP INC INC RADEX 84254 [facility] [place] BARRY FOOT 6 RADIOLOGY RHO COMPLETE MINIMUM 3 VIEWS OPHTH 81021 SCIFRES SCIFRES MEDICAL 5 ANG ANG XM&EVAL COMPRE NEW PT 1/> VST BASIC 54024 [place] METABOLIC 3 [facility] CALCIUM TOTAL RADIOLOGI 01076 BARRY BARRY C 3 RHO RHO EXAMINATI ON CHEST SINGLE VIEW FRONTAL ECG 25985 SHADIA RENO LESLIE ROUTINE 3 ECG W/LEAST 12 LDS I&R ONLY COLLECTIO 01562 [place] N VENOUS 3 [facility] [place] [address] [place] LIPASE 3 [facility] ECG 26016 [place] ROUTINE 3 [facility] W/LEAST 12 LDS TRCG ONLY W/O I&[place] [address] [place] TROPONIN 3 [facility] KEITH BLOOD 95563 [place] COUNT 3 [facility] AUTO&AUTO DIFRNTL WBC HOSPITAL 43682 KMSF RICE YVO DISCHARGE 3 NURSE DAY PRACTITIO MANAGEMEN NER GR T 30 MIN/< ANES 71800 [place] STEYN PIE INTRAPERI 3 MEDICAL TONEAL SERV UPPER FOUNDATIO ABDOMEN W/LAPS NOS CHOLECYST 67359 [place] KELLIE ECTOMY 3 MEDICAL TIA SERV FOUNDATIO LEVEL III 60648 [facility] LAURIE SURG 3 Y OF PATHOLOGY [place] [facility] GROSS&NICOLE ROSCOPIC EXAM MRI 83225 [place] ABDOMEN 3 [facility] W/O [facility] HOSPITAL CONTRAST MATERIAL ECG [address] [facility] MICHAEL ROUTINE 3 CHARLIE III J ECG CARDIOLOG W/LEAST Y CLINIC 12 LDS I&R ONLY LAPAROSCO 10539 C [facility] MORROW PY SURG 3 ZARA ZUÑIGA CHOLECYST PSC PSC ECTOMY ANES 70813 [place] BENITA INTRAPERI 3 ANESTHESI NICOLE TONEAL A GROUP UPPER [place]BDOM[place] W/[place] [address] [facility] [place] MARISELA MAT ABDOMINAL 3 RADIOLOGY REAL TIME W/IMAGE LIMITED GROUND A[address] [facility] MILEAGE 2 [facility] STATUTE EMS EMS MILE RADIOLOGI 25898 [facility] [place] SCALF MAU C EXAM 2 RADIOLOGY CHEST 2 VIEWS FRONTAL&[place] [address] [facility] [place] KOSTELIC ABDOMEN & 2 RADIOLOGY NEGRITO PELVIS W/O CONTRAST MATERIAL AMB A[address] [facility] SERVICE 2 [facility] EMERGENCY EMS EMS TRANSPORT LEVEL [address] [place] [address] LAB DORIAN LAB D[facility]IAN TRIIODOTH 2 AMERIC AMERIC YRONINE HOLDING HOLDING T3 [place] TT[address] [place] [address] LAB D[facility]IAN LAB DORIAN FREE 2 AMERIC AMERIC [place] [address] LAB D[facility] LAB D[facility] THYROID 2 AMERIC AMERIC STIMULATI HOLDING HOLDING NG HORMONE TSH COMPREHEN 91166 LAB [facility] LAB DORIAN SIVE 2 AMERIC AMERIC METABOLIC HOLDING HOLDING PANEL HEMOGLOBI 16724 LAB [facility] LAB DORIAN N 2 AMERIC AMERIC GLYCOSYLA HOLDING HOLDING ALEXIS A1C LIPID 24477 LAB D[facility]IAN LAB DORIAN PANEL 2 AMERIC AMERIC HOLDING HOLDING COMPREHEN 76391 LAB [facility] LAB DORIAN SIVE 2 AMERIC AMERIC METAB[place] [address] LAB DORIAN LAB DORIAN THYROID 2 AMERIC AMERIC STIMULATI HOLDING HOLDING NG HORMONE TSH POLYSOM 61900 STANLEY SAMANTA STANLEY SAMANTA 6/>YRS 1 SLEEP 4/> ADDL ADOLFO ATTND POLYSOM 79053 [facility] 6/>YRS 1 COMMUNITY COMMUNITY SLEEP 4/> HOSPITAL HOSPITAL ADDL ADOLFO ATTND ECHO 30793 STANLEY SAMANTA STANLEY SAMANTA TTHRC R-T 1 2D W/WOM-MOD E COMPL SPEC&COLR D DUP-SCAN 31821 STANLEY SAMANTA STANLEY SAMANTA ARTL EDMOND 1 ABDL/PEL/ SCROT&/RP R ORGN COM CATECHOLA 33354 KENDRA GARDNER MINES [address] [facility] HOSPITAL ALEXIS METANEPHR 78273 KENDRA AVILAON AAKASH 1 [facility] METANEPHR 62886 KENDRA AVILAON AAKASH 1 [facility] [place] [address] KENDRA GOODWINREAGANLISBETH THYROID 1 [facility] NG HORMONE TSH COLLECTIO 44184 KENDRA MARGARITAON N VENOUS 1 [facility] VENIPUNCT URE COLLECTIO 74379 KENDRA GARDNER N VENOUS 1 [facility] VENIPUNCT URE CREATINE 28076 MARGARITALISBETH MARGARITALISBETH KINASE 1 [facility] HOSPITAL URNLS DIP 76547 MARGARITALISBETH MARGARITAON 1 [facility] STICK/TAB HOSPITAL HOSPITAL LET REAGENT AUTO MICROSCOP Y THER 21009 MARGARITALISBETH MARGARITALISBETH PROPH/DX 1 [facility] HOSPITAL HOSPITAL PUSH SINGLE/1S T SBST/DRUG BASIC 24302 KENDRA MARGARITALISBETH METABOLIC 1 [facility] [place] [address] KENDRA GOODWINREAGANLISBETH HEAD/BRAI 1 [facility] N W/O HOSPITAL HOSPITAL CONTRAST MATERIAL ECG 66199 KENDRA AVILAON ROUTINE 1 [facility] HOSPITAL W/LEAST 12 LDS TRCG ONLY W/O I&R THERAPEUT 24304 BUDDYDEBORAH MARGARITALISBETH IC 1 [facility] INJECTION [facility] HOSPITAL IV PUSH EACH NEW DRUG ECG 47699 MIGUEL ANGEL CRUZ ROUTINE 1 EMERGENCY ECG SERVICES W/LEAST 12 LDS I&R ONLY BLOOD 13527 BUDDYDEBORAH MARGARITAON COUNT 1 [facility] HOSPITAL AUTO&AUTO DIFRNTL WBC CREATINE 63020 MARGARITALISBETH MARGARITALISBETH KINASE MB 1 [facility] [place] [address] [facility] TROPONIN 1 [facility] KEITH CRITICAL 24580 MIGUEL ANGEL HAN BAB CARE 1 EMERGENCY ILL/INJUR SERVICES ED PATIENT INIT 30-74 MIN ECG 28581 ROSSY BLAIR ROUTINE 1 STEFANIE STEFANIE ECG W/LEAST 12 LDS I&R ONLY CRITICAL 81789 ROSSY BLAIR CARE 1 STEFANIE STEFANIE ILL/INJUR ED PATIENT INIT 30-74 MIN IIV3 53045 [facility] VACCINE 1 [facility] VIRUS 0.5 ML DOSAGE IM USE COMPREHEN 51588 LAB D[facility]IAN LAB DORIAN SIVE 1 AMERIC AMERIC METABOLIC HOLDING HOLDING PANEL LIPID 03600 LAB D[facility]IAN LAB DORIAN PANEL 1 AMERIC AMERIC HOLDING HOLDING BLOOD 40016 LAB DORIAN LAB DORIAN COUNT 1 AMERIC AMERIC COMPLETE HOLDING HOLDING AUTO&AUTO DIFRNTL WBC NONINVASI 73945 [facility] VE 1 [facility] OXIMETRY SINGLE DETER THERAPEUT 24143 [facility] IC 0 [facility] TIC/DX INJECTION SUBQ/IM APPL 74178 [facility], [facility] 9 FAMILY STEPHANIE S 1/> [facility] IONTOPHOR ESIS EA 15 MIN LIPID 80941 LAB DORIAN LAB DORIAN PANEL 9 AMERIC AMERIC HOLDING HOLDING THYROID 09573 LAB D[facility]IAN LAB DORIAN HORM 9 AMERIC AMERIC UPTK/THYR HOLDING HOLDING OID HORMONE BINDING RATIO NON-INVAS 12026 [facility], FAMILY STEPHANIE S PHYSIOLOG HEALTH IC STD CARE EXTREMITY ART 2 LEVEL APPL 25281 [facility], MODALITY 9 FAMILY STEPHANIE S 1/> [facility] HEALTH [place] [address] LAB DORIAN LAB DORIAN PROSTATE 9 AMERIC AMERIC SPECIFIC HOLDING HOLDING ANTIGEN TOTAL BILIRUBIN 31394 LAB D[facility]IAN LAB DORIAN DIRECT 9 AMERIC AMERIC HOLDING HOLDING ECG 84967 [facility] 9 FAMILY STEPHANIE S ECG HEALTH W/LEAST CARE 12 LDS W/I&R GENERAL 83885 LAB DORIAN LAB DORIAN HEALTH 9 AMERIC AMERIC PANEL HOLDING HOLDING BIOMPEDAN 99540 [facility]-DERIVE 9 FAMILY BROWN S D HEALTH PHYSIOLOG CARE IC CV ANALYSIS BRNCDILAT 55953 [facility] RSPSE 9 FAMILY STEPHANIE Joyce SPMTRY HEALTH PRE&POST- CARE BRNCDILAT ADMN VISUAL 00085 ALISSA LARIOS FIELD XM 9 FAMILY STEPHANIE Joyce UNI/BI HEALTH W/INTER[place] [address] LAB DORIAN LAB DORIAN THYROXINE 9 AMERIC AMER[employer] [place] [address] LAB DORIAN LAB DORIAN TRIIODOTH 9 AMERIC AMERIC YRONINE HOLDING HOLDING T3 TOTAL TT3 Encounters Encounter Start End Date Code Location Performer Type Date HOSPITAL [facility] - 7 7 [facility] OUTPATIEN INC T HOSPITAL [facility] - 7 7 [facility] OUTPATIEN INC T OFFICE 33849 [facility] OUTPATIEN 7 7 PHYSICIAN T VISIT S GROUP 25 MINUTES OFFICE 84389 [facility] 7 7 [facility] T VISIT INC 10 MINUTES [facility] - 7 7 [facility] OUTPATIEN INC T EMERGENCY 03384 [facility] PRITESH 7 7 [facility] DEPARTMEN EMERGENCY T VISIT PHYS HIGH/URGE NT SEVERITY EMERGENCY 84140 [facility] II DEPT 7 7 [facility] VISIT EMERGENCY HIGH PHYS SEVERITY& THREAT FUNCJ EMERGENCY 62872 [facility] SWINEY 6 6 [facility] PAT DEPARTMEN EMERGENCY T VISIT PHYS MODERATE SEVERITY OFFICE 15984 [facility] STONE YOUNG OUTPATIEN 6 6 PHYSICIAN T VISIT S GROUP 15 MINUTES EMERGENCY 31006 [facility] CARMELLA 6 6 ADIL[facility] CYNTHIAA DEPARTMEN EMERGENCY T VISIT PHYS MODERATE SEVERITY EMERGENCY 53336 [facility] DE LA CRUZ 6 6 [facility] RONALD DEPARTMEN EMERGENCY T VISIT PHYSI MODERATE SEVERITY EMERGENCY 41005 [facility] 6 6 [facility] DEPARTMEN INC T VISIT LIMITED/M INOR PROB EMERGENCY 04062 [facility]AL[facility] PETERSER LESLIE 6 6 PHYSICIAN DEPARTMEN S, PLLC T VISIT MODERATE SEVERITY [facility] 52034 [facility] OUTPATIEN 6 6 PHYSICIAN NICOLE T VISIT S GROUP 15 MINUTES EMERGENCY 55154 [facility] RYAN 6 6 [facility] JENNIFER DEPARTMEN EMERGENCY T VISIT PHYS HIGH/URGE NT SEVERITY EMERGENCY 06071 [facility] SOCATALINAN BAB 5 5 [facility] DEPARTMEN EMERGENCY T VISIT PHYS MODERATE SEVERITY EMERGENCY 76916 [facility] DE [facility] 5 5 [facility] RONALD DEPARTMEN EMERGENCY T VISIT PHYS MODERATE SEVERITY OFFICE 24513 [facility] OUTPATIEN 5 5 PHYSICIAN T VISIT S GROUP 15 MINUTES OFFICE 28233 [facility] PHYS[facility]IAN NICOLE T NEW 30 S GROUP MINUTES OFFICE 92889 [facility] 4 4 T NEW 30 MINUTES [facility] [place] - 3 3 [facility] EMERGENCY 21989 [place] DEPT 3 3 [facility] HIGH [facility]VERITY& THREAT [facility] [place] [address] 3 [facility] T OFFICE 50431 [facility] [place] 3 3 MEDICAL TIA T NEW 45 SERV MINUTES FOUNDATIO OFFICE 66504 Natasha [facility]UÑIGA OUTPATIEN 3 3 ZARA SIU T VISIT [facility] 25 MINUTES [facility] 3 3 [facility] T OFFICE 36429 Natasha ZUÑIGA CONSULTAT 3 3 ZARA ROBLERO MD [facility] NEW/ESTAB PATIENT 60 MIN EMERGENCY 53327 MIGUEL ANGEL BIRCH II DEPT 2 2 EMERGENCY THO VISIT SERVICES HIGH SEVERITY& THREAT CRITICAL ACCESS HOSPITAL OFFICE 46559 [facility] OUTPATIEN 2 2 [facility] T [facility] 15 MINUTES OFFICE [id number] [facility] 2 2 [facility] T [facility] 15 MINUTES OFFICE [id number] [facility] OUTPATIEN 2 2 [facility] T [facility] 10 MINUTES OFFICE [id number] [facility] OUTPAT[facility] 2 2 [facility] T [facility] 15 MINUTES OFFICE 46782 SAMANTA STANLEY OUTPATIEN 1 1 MD T VISIT CONSULTIN 15 G SERV MINUTES [facility] [place] - [facility] 1 [facility] [place] OFFICE 67199 [facility]A ST[facility] OUTPATIEN 1 1 T VIS[facility] 15 MINUTES [facility] 1 [facility] T OFFICE 31415 BLAKE BLAKE OUTPATIEN 1 1 JOHN JOHN T VISIT 15 MINUTES OFFICE 40400 STANLEY SAMANTA STANLEY SAMANTA OUTPATIEN 1 1 T NEW 60 MINUTES [facility]ERG[facility]Y 81065 [facility] 1 1 [facility] T VISIT HIGH/URGE NT SEVERITY [facility] 1 [facility] T OFFICE 51655 [facility]KE OUTPATIEN 1 1 JOHN JOHN T VISIT 15 MINUTES OFFICE 07705 [facility] OUTPATIEN 1 1 [facility] T VISIT E CENTER 15 MINUTES OFFICE 13015 [facility] OUTPATIEN 1 1 [facility] T VISIT 5 E CENTER MINUTES OFFICE 18399 [facility] OUTPATIEN 1 1 [facility] VIS[facility] 15 MINUTES OFFICE 40972 [facility] OUTPATIEN 1 1 [facility] T NEW 30 E CENTER MINUTES EMERGENCY 67727 MIGUEL ANGEL RENO LESLIE 0 0 [facility] DEPART[facility] SERVICES T VISIT MODERATE SEVERITY EMERGENCY 36697 MIGUEL ANGEL BA, 0 0 EMERGENCY [facility] DEPARTMEN SERVICES T VISIT HIGH/URGE ASSOCIATE NT S SEVERITY [facility] 0 [facility] T OFFICE 98273 IKRAMUDDI IKRAMUDDI OUTPATIEN 9 9 N, WILLIAM N, WILLIAM T VISIT 40 MINUTES OFFICE 52668 [facility]KR[facility] IKRAMUDDI OUTPATIEN 9 9 N, WILLIAM N, WILLIAM T VISIT 40 MINUTES OFFICE 12162 [facility], OUTPATIEN 9 9 FAMILY STEPHANIE S T NEW 45 HEALTH MINUTES CARE OFFICE 90714 [facility] OUTPATIEN 9 9 ROSALES CAROL S T NEW 20 CLINIC MINUTES EMERGENCY 51224 [facility] 9 9 MEDICAL , [facility] [employer] [facility] MODERATE SEVERITY EMERGENCY 50676 [facility] 9 9 A R H DEPARTMEN T VISIT HIGH/URGE NT SEVERITY HOSPITAL [facility] - 9 9 A R H OUTPATIEN T OFFICE 04670 IKRAMUDDI IKRAMUDDI OUTPATIEN 8 8 N, WILLIAM N, WILLIAM T NEW 60 MINUTES
--- OUTSIDE RECORDS SUMMARY | 2017-06-23 07:23 | External Medical Summary Rpt ---
Author Author [facility] Copeland, [employer] Organization [employer] Address Unknown Phone Unavailable Results Drugs identified in Urine by Screen method Observa Value Referen Units Interpr Notes Date tion ce etation Range Positive urine drug screen samples are stored for 7 days. Contact the Lab if confirmation of positives is needed. Ampheta NEGATIV <1000 ng/mL No No Jun 09 mine E informa informa 2017 [Presen tion in tion in 3:20 PM ce] in source source Urine data data by Screen method Barbitura <200 ng/mL No No Jun 09 yanci informati informati 2017 3:20 [Mass/vol on in on in PM ume] in source source Urine by data data Screen method Benzodiaz 200 ng/mL ng/mL No No Jun 09 epines informati informati 2017 3:20 [Mass/vol on in on in PM ume] in source source Serum or data data Plasma by Screen method Cocaine <300 ng/g No No May 27 [Mass/vol informati informati 2017 3:20 ume] in on in on in PM Unspecifi source source ed data data specimen Methadone <300 ng/mL No No May 27 informati informati 2017 3:20 [Mass/vol on in on in PM ume] in source source Unspecifi data data ed specimen Opiates <300 ng/mL No No May 27 [Mass/vol informati informati 2017 3:20 ume] in on in on in PM Unspecifi source source ed data data specimen Phencycli <25 ng/mL No No Sep 27 dine informati informati 2017 3:20 [Mass/vol on in on in PM ume] in source source Unspecifi data data ed specimen 11-Hydr NEGATIV <50 ng/mL No No May 27 oxy E informa informa 2017 delta-9 tion in tion in 3:20 PM source source tetrahy data data drocann abinol [Presen ce] in Unspeci fied specime n
--- OUTSIDE RECORDS SUMMARY | 2017-06-23 07:23 | External Medical Summary Rpt ---
Demographics Preferred Language Cuban Marital Status Unknown Denominational Affiliation Unknown Race Unknown Ethnic Group Unknown Author Author , [employer] [employer] Address Unknown Phone Immunization Unable to retrieve immunization data due to connection failure with Immunization Registry. Please try again later.
--- OUTSIDE RECORDS SUMMARY | 2017-06-23 07:23 | External Medical Summary Rpt ---
Demographics Preferred Language Ugandan Marital Status Unknown Yazdanism Affiliation Unknown Race Unknown Ethnic Group Unknown Author Author , [facility] [employer] Address Unknown Phone Immunization Unable to retrieve immunization data due to connection failure with Immunization Registry. Please try again later.
--- OUTSIDE RECORDS SUMMARY | 2017-06-23 07:23 | External Medical Summary Rpt ---
Author Author [facility] Copleand, [employer] [employer] Organization [employer] Address Unknown [...]
== END 2017-05-31 20:00 | disposition left against medical advice (07) ==
LOC: ER 17:56
DX: J20.9 Acute bronchitis, unspecified (principal)

== ENCOUNTER → 2017-06-09 | Outpatient (CLI) | payer MEDICAID ==
[2017-06-09 22:10] LABS: AMPHETAMINES/METAMPHETAMINES NEGATIVE ng/mL (<1000)
== END ==
LOC: LAB 17:57
PROVIDERS: Physician Assistant
DX: Z79.899 Other long term (current) drug therapy (principal)